=== PATIENT | male | born 1965 | race Hispanic/Latino ===

== ENCOUNTER 2018-03-27 11:43 | Inpatient (IN) | payer OTHER ==
[2018-03-27 12:22] LABS: Mean Corpuscular HGB Conc 36 % (32-34); Mean Corpuscular Hemoglobin 34 pg (28-32); Mean Corpuscular Volume 94 fl (84-94); Platelet Count 221 K/mm3 (140-440); Red Blood Count 5.13 M/mm3 (3.65-5.03); Red Cell Distribution Width 13.4 % (13.2-15.2)
[2018-03-27 12:30] LABS: Bacteria,Urine 4+ /HPF (Negative); Bilirubin,Urine NEG (Negative); Blood,Urine NEG (Negative); Color,Urine Amber (Yellow); Hyaline Casts,Urine 12 /LPF; Mucus,Urine 3+ /HPF; Sperm,Urine 3+ /HPF (NP)
[2018-03-27] MEDS ORDERED: HALDOL IM PRN (12:30)
[2018-03-27 12:31] LABS: Benzodiazepines Screen,Urine PRESUMPTIVE NEGATIVE; Cannabinoid Screen,Urine PRESUMPTIVE NEGATIVE; Cocaine Screen,Urine PRESUMPTIVE NEGATIVE; Methadone Screen,Urine PRESUMPTIVE NEGATIVE; Opiate Screen,Urine PRESUMPTIVE NEGATIVE
[2018-03-27 12:31] LABS: Hematocrit 48.2 % (35.5-45.6); Hemoglobin 17.3 gm/dl (11.8-15.2)
[2018-03-27 12:43] LABS: Calcium 9.5 mg/dL (8.4-10.2)
[2018-03-27] MEDS ORDERED: NACL 0.9% 1000 ML 2,000 ML IV ONE (12:49)
[2018-03-27] MEDS: ATIVAN IM PRN (12:50)
[2018-03-27] MEDS ORDERED: NACL 0.9% 1000 ML 1,000 ML IV ONE (12:50)
--- NOTE | 2018-03-27 12:51 | Emergency Department Report ---
ED General Adult HPI - General Chief complaint: Psych Stated complaint: SKYSO Time Seen by Provider: 03/27/18 12:28 Source: patient, RN notes reviewed, old records reviewed Mode of arrival: Ambulatory Limitations: Other (patient is psychiatrically disorganized and is a poor historian) - History of Present Illness Initial comments: This is a 53-year-old male who is unknown to this provider previously, has a history of psychiatric disease and methamphetamine abuse. He reports that he was recently released from long term on the of this month. He then reports that he was hanging out with friends, and ingested "monkey paw" although he is not sure what it was. He is brought to the hospital today by local police for medical clearance. The patient is a very disorganized historian. He is not homicidal or suicidal, and an indicates no physical pain. History is limited as the patient is a poor historian, actively psychotic and disorganized. No family or friends or [place] enforcement is available for collateral information at this time. -: unknown Radiation: other Quality: other Consistency: other Improves with: other Worsens with: other Associated Symptoms: other - Related Data Home Medications Medication Instructions Recorded Confirmed Last Taken No Known Home Medications [No 03/27/18 03/27/18 Unknown Reported Home Medications] Allergies Allergy/AdvReac Type Severity Reaction Status Date / Time codeine Allergy Unknown Verified 03/27/18 11:57 ED Review of Systems ROS: Stated complaint: SKYSO Other details as noted in HPI Comment: Unobtainable due to pts medical conditions Cardiovascular: denies: chest pain Gastrointestinal: abdominal pain Genitourinary: denies: dysuria Psychiatric: denies: homicidal thoughts, suicidal thoughts ED Past Medical Hx - Past Medical History Hx Psychiatric Treatment: Yes (paranoid schizophrenia) - Surgical History Past Surgical History?: No - Social History Smoking Status: Current Every Day Smoker Substance Use Type: None, Methamphetamines - Medications Home Medications: Home Medications Medication Instructions Recorded Confirmed Last Taken Type No Known Home Medications [No 03/27/18 03/27/18 Unknown History Reported Home Medications] ED Physical Exam - General Limitations: Other (patient appears anxious and is disorganized) General appearance: alert, appears intoxicated, anxious - Head Head exam: Present: atraumatic, normocephalic - Eye Eye exam: Present: normal appearance - ENT ENT exam: Present: mucous membranes dry - Neck Neck exam: Present: normal inspection, full ROM - Respiratory Respiratory exam: Present: normal lung sounds bilaterally. Absent: respiratory distress - Cardiovascular Cardiovascular Exam: Present: normal rhythm, tachycardia, normal heart sounds. Absent: systolic murmur, diastolic murmur, rubs, gallop - GI/Abdominal GI/Abdominal exam: Present: soft, normal bowel sounds. Absent: distended, tenderness, guarding, rebound, rigid, pulsatile mass - Rectal Rectal exam: Present: deferred - Extremities Exam Extremities exam: Present: normal inspection, full ROM, other (2+ pulses noted in the bilateral upper, lower extremities. Compartments soft. No long bony tenderness. The pelvis is stable.). Absent: calf tenderness - Back Exam Back exam: Present: normal inspection. Absent: tenderness, CVA tenderness (R), paraspinal tenderness, vertebral tenderness - Neurological Exam Neurological exam: Present: alert, CN II-XII intact, normal gait, other ( Extraocular movements intact. Tongue midline. No facial droop. Facial sensation intact to light touch in the V1, V2, V3 distribution bilaterally. 5 and 5 strength in 4 extremities.. Sensation is intact to light touch in 4 extremities.) - Psychiatric Psychiatric exam: Present: anxious, manic - Skin Skin exam: Present: warm, dry, intact, normal color. Absent: rash ED Course Vital Signs 03/27/18 11:58 Temperature 98.2 F Pulse Rate 121 H Respiratory 20 Rate Blood Pressure 142/61 O2 Sat by Pulse 96 Oximetry - Reevaluation(s) Reevaluation #1: 03/27/18 13:26 Differential diagnosis, including but not limited to: Rhabdomyolysis, acute renal insufficiency, psychosis, methamphetamine abuse Assessment and plan: 53-year-old male who is very disorganized, appears intoxicated on methamphetamines or sympathomimetic agent, does not appear to have the ability to care for himself, and also does not appear to have the ability to make rational decisions at this time. His laboratory studies show leukocytosis and acute renal insufficiency, and probable rhabdomyolysis. Patient most likely has methamphetamine-induced rhabdomyolysis which has caused renal failure. His leukocytosis is appreciated , he is afebrile but tachycardic, likely a function of dehydration and possible vasomotor nephropathy. Leukocytosis is most likely a stress demargination. However his urinalysis does demonstrate bacteria. He will be treated according to the sepsis pathway, with appropriate IV fluids, blood cultures, lactic acid. He will require admission for his multiple abnormalities. Case is presented to the Hospital physician, Dr. Serrano, who has accepted the patient to the medical service. A 1013 form is filled out by me. ED Medical Decision Making - Lab Data Result diagrams: 03/27/18 12:11 03/27/18 12:11 Critical care attestation.: If time is entered above; I have spent that time in minutes in the direct care of this critically ill patient, excluding procedure time. ED Disposition Clinical Impression: Acute psychosis, Methamphetamine abuse, MARIANA (acute kidney injury) Rhabdomyolysis Qualifiers: Rhabdomyolysis type: non-traumatic Qualified Code(s): M62.82 - Rhabdomyolysis Disposition: DC-09 OP ADMIT IP TO THIS HOSP Is pt being admited?: Yes Condition: Good Referrals: ERIKA TRINIDAD MD [Primary Care Provider] - 3-5 Days
[2018-03-27 12:53] LABS: Amphetamine Screen,Urine PRESUMPTIVE POSITIVE
[2018-03-27] MEDS ORDERED: NACL 0.9% 1000 ML IV ONE (12:56)
--- NOTE | 2018-03-27 13:21 | History and Physical Report ---
History of Present Illness History of present illness: 53 YO Male with Nicotine Dependence, Paranoid Schizophrenia, Methamphetamine Abuse presents to ED for evaluation. Pt is unable to provide history due to disorganized schizophrenia as well as confusion. Pt brought to ED by [facility]. As per patient, he reports that he was hanging out with friends and ingested "monkey paw". No further history available. Pt seen and evaluated in ED and found to have UTI, Sepsis, and Acute Renal Failure. Pt admitted to medical floor , and initiated on sepsis protocol. Past History Past Medical History: other (Schizophrenia) Past Surgical History: No surgical history, Other (reviewed) Social history: single, smoking Family history: no significant family history (reviewed) Medications and Allergies Allergies Allergy/AdvReac Type Severity Reaction Status Date / Time codeine Allergy Unknown Verified 03/27/18 11:57 Home Medications Medication Instructions Recorded Confirmed Last Taken Type No Known Home Medications [No 03/27/18 03/27/18 Unknown History Reported Home Medications] Active Meds: Active Medications Haloperidol Lactate (Haldol) 5 mg IM Q6HR PRN PRN Reason: Agitation Ceftriaxone Sodium (Rocephin/Ns 1 Gm/50 Ml) 1 gm in 50 mls @ 100 mls/hr IV Q24H MICHAEL; Protocol Lorazepam (Ativan) 2 mg IM Q4HR PRN PRN Reason: Agitation Review of Systems ROS unobtainable: due to mental status Exam - Constitutional Vitals: Temp Pulse Resp BP Pulse Ox 98.2 F 121 H 20 142/61 96 03/27/18 11:58 03/27/18 11:58 03/27/18 11:58 03/27/18 11:58 03/27/18 11:58 General appearance: Present: mild distress - EENT Eyes: Present: PERRL ENT: hearing intact, clear oral mucosa - Neck Neck: Present: supple, normal ROM - Respiratory Respiratory effort: normal Respiratory: bilateral: CTA - Cardiovascular Heart Sounds: Present: S1 & S2. Absent: rub, click - Extremities Extremities: pulses symmetrical, No edema Peripheral Pulses: abnormal (capillary refill greater than 3.5 seconds) - Abdominal General gastrointestinal: Present: soft, non-tender, non-distended, normal bowel sounds Male genitourinary: Present: normal - Integumentary Integumentary: Present: clear, dry, clammy, decreased turgor - Musculoskeletal Musculoskeletal: gait normal, strength equal bilaterally - Psychiatric Psychiatric: no appropriate mood/affect, no intact judgment & insight, no memory intact, agitated - Neurologic Neurologic: CNII-XII intact, moves all extremities, no gait normal Results - Labs CBC & Chem 7: 03/27/18 12:11 03/27/18 12:11 Labs: Abnormal lab results 03/27/18 03/27/18 03/27/18 Range/Units 12:11 12:11 12:11 WBC (4.5-11.0) K/mm3 RBC (3.65-5.03) M/mm3 Hgb (11.8-15.2) gm/dl Hct (35.5-45.6) % MCH (28-32) pg MCHC (32-34) % Sodium 135 L (137-145) mmol/L Potassium 3.5 L (3.6-5.0) mmol/L Chloride 91.5 L (98-107) mmol/L BUN 32 H (9-20) mg/dL Creatinine 2.5 H (0.8-1.5) mg/dL Glucose 154 H (75-100) mg/dL Urine WBC (Auto) (0.0-6.0) /HPF Salicylates < 0.3 L (2.8-20.0) mg/dL Acetaminophen < 5.0 L (10.0-30.0) ug/mL 03/27/18 03/27/18 Range/Units 12:11 12:12 WBC 18.2 H (4.5-11.0) K/mm3 RBC 5.13 H (3.65-5.03) M/mm3 Hgb 17.3 H (11.8-15.2) gm/dl Hct 48.2 H (35.5-45.6) % MCH 34 H (28-32) pg MCHC 36 H (32-34) % Sodium (137-145) mmol/L Potassium (3.6-5.0) mmol/L Chloride (98-107) mmol/L BUN (9-20) mg/dL Creatinine (0.8-1.5) mg/dL Glucose (75-100) mg/dL Urine WBC (Auto) 16.0 H (0.0-6.0) /HPF Salicylates (2.8-20.0) mg/dL Acetaminophen (10.0-30.0) ug/mL Assessment and Plan - Patient Problems (1) Sepsis Current Visit: Yes Status: Acute Qualifiers: Sepsis type: sepsis due to unspecified organism Qualified Code(s): A41.9 - Sepsis, unspecified organism Plan to address problem: Iv antibiotic therapy, monitor uop q shift, blood cultures, urinalysis, Chest X ray, serial lactic acid, IVF resuscitation. (2) UTI (urinary tract infection) Current Visit: Yes Status: Acute Qualifiers: Encounter type: initial encounter Plan to address problem: IV antibiotic therapy (3) ARF (acute renal failure) Current Visit: Yes Status: Acute Qualifiers: Acute renal failure type: with acute tubular necrosis Qualified Code(s): N17.0 - Acute kidney failure with tubular necrosis Plan to address problem: IVF resuscitation, monitor uop q shift, urine electrolytes, renal ultrasound, repeat bmp in am. (4) Methamphetamine abuse Current Visit: Yes Status: Acute Plan to address problem: Pt counseled, supportive care (5) Rhabdomyolysis Current Visit: Yes Status: Acute Qualifiers: Rhabdomyolysis type: non-traumatic Qualified Code(s): M62.82 - Rhabdomyolysis Plan to address problem: IVF resuscitation, CK Level, monitor uop q shift, repeat CK in am. (6) Schizophrenia Current Visit: No Status: Chronic Qualifiers: Schizophrenia type: disorganized schizophrenia Qualified Code(s): F20.1 - Disorganized schizophrenia Plan to address problem: Psychiatry consulted, supportive care, neuro checks (7) DVT prophylaxis Current Visit: Yes Status: Acute Plan to address problem: SCD to BLE while in bed.
[2018-03-27] MEDS ORDERED: SODIUM CHLORIDE FLUSH SYRINGE 10 ML IV PRN (13:22)
[2018-03-27] MEDS ORDERED: ZOFRAN IV PRN (13:22)
[2018-03-27] MEDS ORDERED: TYLENOL PO PRN (13:22)
[2018-03-27] MEDS ORDERED: NACL 0.45% 2,000 ML IV SCH (14:00)
[2018-03-27] MEDS ORDERED: ROCEPHIN/NS 1 GM/50 ML 1 GM/50 ML BAG IV SCH (14:00)
[2018-03-27 14:23] LABS: Band Neutrophils # (Manual) 0.7 K/mm3; Basophils % (Manual) 0 % (0.0-1.8); Eosinophils % (Manual) 0 % (0.0-4.3); Total Cells Counted 100
[2018-03-27 14:24] LABS: Large Platelets Few; Platelet Estimate Consistent w Auto; RBC Morphology Normal
--- NOTE | 2018-03-27 16:12 | Ultrasound Report ---
FINAL REPORT EXAM: US RENAL BILAT HISTORY: renal failure TECHNIQUE: Ultrasound examination of the kidneys PRIORS: None. FINDINGS: Visualized right kidney: 11.2 x 4.9 x 5.9 cm. Visualized left kidney: 11.9 x 4.5 x 4.9 cm. Renal cortical thickness is 19 mm on the right and 21 mm on the left. Focal lesion: None visible Calculus: None visible Hydronephrosis: None Perinephric fluid: None Urinary bladder: No evidence of focal abnormality in visible portion. IMPRESSION: No sonographic evidence of renal pathology
[2018-03-27] MEDS: ROCEPHIN/NS 1 GM/50 ML 1 GM/50 ML BAG IV SCH (16:35)
[2018-03-27] MEDS: SODIUM CHLORIDE FLUSH SYRINGE 10 ML IV SCH (22:50)
[2018-03-28] MEDS: ATIVAN IM PRN (05:41)
--- NOTE | 2018-03-28 08:38 | Progress Note ---
Assessment and Plan Assessment and plan: 53 YO Male with Nicotine Dependence, Paranoid Schizophrenia, Methamphetamine Abuse presents to ED for evaluation. Pt is unable to provide history due to disorganized schizophrenia as well as confusion. Pt brought to ED by [facility] for medical clearance. As per patient, he reports that he was hanging out with friends and ingested "monkey paw". No further history available. Pt seen and evaluated in ED and found to have UTI, Sepsis, and Acute Renal Failure. Pt admitted to medical floor, and initiated on sepsis protocol. Sepsis secondary to Acute cystitis Acute cystitis Acute Kidney injury secondary to vasomotor nephropathy Methaampetamin abusea Rhabdomyolysis Schizophrenia Recent Incarceration Plan * Supportive care * Follow cultures * Continue IV fluids * Continue 1013 pending psych eval * Await stat repeat labs today * if renal function improving, patient can be cleared for discharge * Plan discussed with patient in detail * Renal us pending * DVT/GI prophy * Counselling against substance abuse. 15 MINS History Interval history: Patient seen and examined, reports no remorse about attempting to use meth, took the monkey paw due to thought it contained meth. Denies chest pain, shortness of breath, nausea and vomiting. Hospitalist Physical - Constitutional Vitals: Temp Pulse Resp BP Pulse Ox 98.3 F 78 18 95/56 98 03/28/18 05:40 03/28/18 05:59 03/28/18 05:40 03/28/18 05:40 03/28/18 05:59 General appearance: Present: no acute distress, well-nourished - EENT Eyes: Present: PERRL, EOM intact ENT: clear oral mucosa - Neck Neck: Present: supple, normal ROM - Respiratory Respiratory effort: normal Respiratory: bilateral: CTA - Cardiovascular Rhythm: regular Heart Sounds: Present: S1 & S2. Absent: systolic murmur - Extremities Extremities: no ischemia, pulses intact, pulses symmetrical, No edema, normal temperature, normal color, Full ROM Peripheral Pulses: within normal limits - Abdominal General gastrointestinal: soft, non-tender, non-distended, normal bowel sounds - Integumentary Integumentary: Present: clear, warm, dry - Psychiatric Psychiatric: appropriate mood/affect, intact judgment & insight - Neurologic Neurologic: CNII-XII intact, moves all extremities - Allied Health Allied health notes reviewed: nursing Results - Labs CBC & Chem 7: 03/28/18 11:43 03/28/18 11:43 Labs: Laboratory Last Values WBC 18.2 K/mm3 (4.5-11.0) H 03/27/18 12:11 RBC 5.13 M/mm3 (3.65-5.03) H 03/27/18 12:11 Hgb 17.3 gm/dl (11.8-15.2) H 03/27/18 12:11 Hct 48.2 % (35.5-45.6) H 03/27/18 12:11 MCV 94 fl (84-94) 03/27/18 12:11 MCH 34 pg (28-32) H 03/27/18 12:11 MCHC 36 % (32-34) H 03/27/18 12:11 RDW 13.4 % (13.2-15.2) 03/27/18 12:11 Plt Count 221 K/mm3 (140-440) 03/27/18 12:11 Add Manual Diff Complete 03/27/18 12:11 Total Counted 100 03/27/18 12:11 Seg Neuts % (Manual) 70.0 % (40.0-70.0) 03/27/18 12:11 Band Neutrophils % 4.0 % 03/27/18 12:11 Lymphocytes % (Manual) 9.0 % (13.4-35.0) L 03/27/18 12:11 Reactive Lymphs % (Man) 0 % 03/27/18 12:11 Monocytes % (Manual) 17.0 % (0.0-7.3) H 03/27/18 12:11 Eosinophils % (Manual) 0 % (0.0-4.3) 03/27/18 12:11 Basophils % (Manual) 0 % (0.0-1.8) 03/27/18 12:11 Metamyelocytes % 0 % 03/27/18 12:11 Myelocytes % 0 % 03/27/18 12:11 Promyelocytes % 0 % 03/27/18 12:11 Blast Cells % 0 % 03/27/18 12:11 Nucleated RBC % Not Reportable 03/27/18 12:11 Seg Neutrophils # Man 12.7 K/mm3 (1.8-7.7) H 03/27/18 12:11 Band Neutrophils # 0.7 K/mm3 03/27/18 12:11 Lymphocytes # (Manual) 1.6 K/mm3 (1.2-5.4) 03/27/18 12:11 Abs React Lymphs (Man) 0.0 K/mm3 03/27/18 12:11 Monocytes # (Manual) 3.1 K/mm3 (0.0-0.8) H 03/27/18 12:11 Eosinophils # (Manual) 0.0 K/mm3 (0.0-0.4) 03/27/18 12:11 Basophils # (Manual) 0.0 K/mm3 (0.0-0.1) 03/27/18 12:11 Metamyelocytes # 0.0 K/mm3 03/27/18 12:11 Myelocytes # 0.0 K/mm3 03/27/18 12:11 Promyelocytes # 0.0 K/mm3 03/27/18 12:11 Blast Cells # 0.0 K/mm3 03/27/18 12:11 WBC Morphology Not Reportable 03/27/18 12:11 Hypersegmented Neuts Not Reportable 03/27/18 12:11 Hyposegmented Neuts Not Reportable 03/27/18 12:11 Hypogranular Neuts Not Reportable 03/27/18 12:11 Smudge Cells Not Reportable 03/27/18 12:11 Toxic Granulation Not Reportable 03/27/18 12:11 Toxic Vacuolation Not Reportable 03/27/18 12:11 Dohle Bodies Not Reportable 03/27/18 12:11 Pelger-Huet Anomaly Not Reportable 03/27/18 12:11 Rodrick Rods Not Reportable 03/27/18 12:11 Platelet Estimate Consistent w auto 03/27/18 12:11 Clumped Platelets Not Reportable 03/27/18 12:11 Plt Clumps, EDTA Not Reportable 03/27/18 12:11 Large Platelets Few 03/27/18 12:11 Giant Platelets Not Reportable 03/27/18 12:11 Platelet Satelliting Not Reportable 03/27/18 12:11 Plt Morphology Comment Not Reportable 03/27/18 12:11 RBC Morphology Normal 03/27/18 12:11 Dimorphic RBCs Not Reportable 03/27/18 12:11 Polychromasia Not Reportable 03/27/18 12:11 Hypochromasia Not Reportable 03/27/18 12:11 Poikilocytosis Not Reportable 03/27/18 12:11 Anisocytosis Not Reportable 03/27/18 12:11 Microcytosis Not Reportable 03/27/18 12:11 Macrocytosis Not Reportable 03/27/18 12:11 Spherocytes Not Reportable 03/27/18 12:11 Pappenheimer Bodies Not Reportable 03/27/18 12:11 Sickle Cells Not Reportable 03/27/18 12:11 Target Cells Not Reportable 03/27/18 12:11 Tear Drop Cells Not Reportable 03/27/18 12:11 Ovalocytes Not Reportable 03/27/18 12:11 Helmet Cells Not Reportable 03/27/18 12:11 Quintana-Numa Bodies Not Reportable 03/27/18 12:11 [place] Rings Not Reportable 03/27/18 12:11 Emigdio Cells Not Reportable 03/27/18 12:11 Bite Cells Not Reportable 03/27/18 12:11 Crenated Cell Not Reportable 03/27/18 12:11 Elliptocytes Not Reportable 03/27/18 12:11 Acanthocytes (Spur) Not Reportable 03/27/18 12:11 Rouleaux Not Reportable 03/27/18 12:11 Hemoglobin C Crystals Not Reportable 03/27/18 12:11 Schistocytes Not Reportable 03/27/18 12:11 Malaria parasites Not Reportable 03/27/18 12:11 Nico Bodies Not Reportable 03/27/18 12:11 Hem Pathologist Commnt No 03/27/18 12:11 Sodium 135 mmol/L (137-145) L 03/27/18 12:11 Potassium 3.5 mmol/L (3.6-5.0) L 03/27/18 12:11 Chloride 91.5 mmol/L (98-107) L 03/27/18 12:11 Carbon Dioxide 25 mmol/L (22-30) 03/27/18 12:11 Anion Gap 22 mmol/L 03/27/18 12:11 BUN 32 mg/dL (9-20) H 03/27/18 12:11 Creatinine 2.5 mg/dL (0.8-1.5) H 03/27/18 12:11 Estimated GFR 27 ml/min 03/27/18 12:11 BUN/Creatinine Ratio 13 % 03/27/18 12:11 Glucose 154 mg/dL (75-100) H 03/27/18 12:11 Lactic Acid 0.90 mmol/L (0.7-2.0) 03/27/18 19:55 Calcium 9.5 mg/dL (8.4-10.2) 03/27/18 12:11 Total Creatine Kinase 5401 units/L (55-170) H 03/27/18 12:11 Urine Color [place] (Yellow) 03/27/18 12:12 Urine Turbidity Slightly-cloudy (Clear) 03/27/18 12:12 Urine pH 5.0 (5.0-7.0) 03/27/18 12:12 Ur Specific [place] 1.027 (1.003-1.030) 03/27/18 12:12 Urine Protein 100 mg/dl mg/dL (Negative) 03/27/18 12:12 Urine Glucose (UA) Neg mg/dL (Negative) 03/27/18 12:12 Urine Ketones Tr mg/dL (Negative) 03/27/18 12:12 Urine Blood Neg (Negative) 03/27/18 12:12 Urine Nitrite Neg (Negative) 03/27/18 12:12 Urine Bilirubin Neg (Negative) 03/27/18 12:12 Urine Urobilinogen 4.0 mg/dL (<2.0) 03/27/18 12:12 Ur Leukocyte Esterase Neg (Negative) 03/27/18 12:12 Urine WBC (Auto) 16.0 /HPF (0.0-6.0) H 03/27/18 12:12 Urine RBC (Auto) 25.0 /HPF (0.0-6.0) 03/27/18 12:12 U Epithel Cells (Auto) 1.0 /HPF (0-13.0) 03/27/18 12:12 Urine Bacteria (Auto) 4+ /HPF (Negative) 03/27/18 12:12 Hyaline Casts 12 /LPF 03/27/18 12:12 Urine Mucus 3+ /HPF 03/27/18 12:12 Urine Yeast (Budding) 1+ /HPF 03/27/18 12:12 Urine Sperm 3+ /HPF (LADLE REPAIRER) 03/27/18 12:12 Salicylates < 0.3 mg/dL (2.8-20.0) L 03/27/18 12:11 Urine Opiates Screen Presumptive negative 03/27/18 12:12 Urine Methadone Screen Presumptive negative 03/27/18 12:12 Acetaminophen < 5.0 ug/mL (10.0-30.0) L 03/27/18 12:11 Ur Barbiturates Screen Presumptive negative 03/27/18 12:12 Ur Phencyclidine Scrn Presumptive negative 03/27/18 12:12 Ur Amphetamines Screen Presumptive positive 03/27/18 12:12 U Benzodiazepines Scrn Presumptive negative 03/27/18 12:12 Urine Cocaine Screen Presumptive negative 03/27/18 12:12 U Marijuana (THC) Screen Presumptive negative 03/27/18 12:12 Drugs of Abuse Note Disclamer 03/27/18 12:12 Plasma/Serum Alcohol < 0.01 % (0-0.07) 03/27/18 12:11
[2018-03-28] MEDS: HEPARIN SUB-Q SCH ×2 (10:30→22:00)
[2018-03-28] MEDS: SODIUM CHLORIDE FLUSH SYRINGE 10 ML IV SCH (10:33)
[2018-03-28 12:26] LABS: Basophils % (Auto) 0.2 % (0.0-1.8); Eosinophils # (Auto) 0.1 K/mm3 (0.0-0.4); Eosinophils % (Auto) 1.3 % (0.0-4.3); Hematocrit 42.3 % (35.5-45.6); Hemoglobin 14.7 gm/dl (11.8-15.2); Lymphocytes # (Auto) 2.1 K/mm3 (1.2-5.4); Lymphocytes % (Auto) 27.5 % (13.4-35.0); Mean Corpuscular HGB Conc 35 % (32-34); Mean Corpuscular Hemoglobin 33 pg (28-32); Mean Corpuscular Volume 96 fl (84-94); Monocytes % (Auto) 13.3 % (0.0-7.3); Platelet Count 163 K/mm3 (140-440); Red Blood Count 4.41 M/mm3 (3.65-5.03); Red Cell Distribution Width 13.8 % (13.2-15.2)
[2018-03-28 12:42] LABS: BUN/Creatinine Ratio 25; Blood Urea Nitrogen 20 mg/dL (9-20); Calcium 8.6 mg/dL (8.4-10.2); Hemolysis Index 8
[2018-03-28] MEDS: ROCEPHIN/NS 1 GM/50 ML 1 GM/50 ML BAG IV SCH (19:03)
[2018-03-28] MEDS: NACL 0.45% 1000 ML 1,000 ML IV SCH (19:21)
[2018-03-29] MEDS: SODIUM CHLORIDE FLUSH SYRINGE 10 ML IV SCH ×3 (00:44→22:10)
[2018-03-29] MEDS: NACL 0.45% 1000 ML 1,000 ML IV SCH (05:28)
[2018-03-29 05:42] LABS: Hematocrit 41.4 % (35.5-45.6); Hemoglobin 14.2 gm/dl (11.8-15.2); Mean Corpuscular HGB Conc 34 % (32-34); Mean Corpuscular Hemoglobin 33 pg (28-32); Mean Corpuscular Volume 96 fl (84-94); Platelet Count 153 K/mm3 (140-440); Red Blood Count 4.32 M/mm3 (3.65-5.03); Red Cell Distribution Width 13.6 % (13.2-15.2)
[2018-03-29 06:22] LABS: BUN/Creatinine Ratio 30; Blood Urea Nitrogen 15 mg/dL (9-20); Calcium 8.3 mg/dL (8.4-10.2); Hemolysis Index 10
[2018-03-29] MEDS: HEPARIN SUB-Q SCH ×2 (11:14→22:12)
--- NOTE | 2018-03-29 12:27 | Discharge Summary ---
Providers - Providers Date of Admission: 03/27/18 13:22 Attending physician: AYDEN PEREZ MD 03/27/18 12:30 Consult to Mental Health [CONS] Urgent Reason For Exam: psych Place consult to:: candles pourer rn transition Notified:: awaiting call back 03/27/18 13:28 Consult to Physician [CONS] Routine Comment: Consulting Provider: CHERELLE ROCK Physician Instructions: Reason For Exam: psychosis Primary care physician: ERIKA TRINIDAD Hospitalization Reason for admission: sepsis, psychosis Condition: Good Hospital course: 53 YO Male with Nicotine Dependence, Paranoid Schizophrenia, Methamphetamine Abuse presents to ED for evaluation. Pt is unable to provide history due to disorganized schizophrenia as well as confusion. Pt brought to ED by [facility] for medical clearance. As per patient, he reports that he was hanging out with friends and ingested "monkey paw". No further history available. Pt seen and evaluated in ED and found to have UTI, Sepsis, and Acute Renal Failure. Pt admitted to medical floor, and initiated on sepsis protocol. Patient was treated with antibiotics, was also seen by psychiatry and started on INVEGA which he was supposed to be on outpatient and also vistaril, subsquently the 1013 was rescineded and resources provided to the patient including counselling. Sepsis secondary to Acute cystitis Acute cystitis Acute Kidney injury secondary to vasomotor nephropathy Methamphetamine abusea Rhabdomyolysis Schizophrenia Recent Incarceration Unspecified Psychosis. Substance Use DO (amphetamines). Acute Psychosis Disposition: DC-01 TO HOME OR SELFCARE Time spent for discharge: 35 mins Core Measure Documentation - Palliative Care Palliative Care/ Comfort Measures: Not Applicable - Core Measures Any of the following diagnoses?: none - VTE Discharge Requirements Deep Vein Thrombosis/Pulmonary Embolism Present on Admission: No Exam - Physical Exam Narrative exam: VITAL SIGNS: Reviewed. GENERAL: The patient appeared well nourished and normally developed. Vital signs as documented. HEAD: No signs of head trauma. EYES: Pupils are equal. Extraocular motions intact. EARS: Hearing grossly intact. MOUTH: Oropharynx is normal. NECK: No adenopathy, no JVD. CHEST: Chest with clear breath sounds bilaterally. No wheezes, rales, or rhonchi. CARDIAC: Regular rate and rhythm. S1 and S2, without murmurs, gallops, or rubs. VASCULAR: No Edema. Peripheral pulses normal and equal in all extremities. ABDOMEN: Soft, without detectable tenderness. No sign of distention. No rebound or guarding, and no masses palpated. Bowel Sounds normal. MUSCULOSKELETAL: Good range of motion of all major joints. Extremities without clubbing, cyanosis or edema. NEUROLOGIC EXAM: Alert and oriented x 3. No focal sensory or strength deficits. Speech normal. Follows commands. PSYCHIATRIC: Mood normal.disorganized thought process SKIN: No rash or lesions. - Constitutional Vitals: Temp Pulse Resp BP Pulse Ox 97.9 F 77 20 106/68 97 03/29/18 05:31 03/29/18 07:22 03/29/18 07:22 03/29/18 07:22 03/29/18 07:22 Plan Activity: advance as tolerated, fall precautions Diet: regular Special Instructions: record daily BP diary, smoking cessation Additional Instructions: must enroll in detox program Follow up with: ERIKA TRINIDAD MD [Primary Care Provider] - 3-5 Days CHERELLE ROCK MD [Staff Physician] - 7 Days
--- NOTE | 2018-03-29 17:23 | Progress Note ---
Assessment and Plan Assessment and plan: 53 YO Male with Nicotine Dependence, Paranoid Schizophrenia, Methamphetamine Abuse presents to ED for evaluation. Pt is unable to provide history due to disorganized schizophrenia as well as confusion. Pt brought to ED by [facility] for medical clearance. As per patient, he reports that he was hanging out with friends and ingested "monkey paw". No further history available. Pt seen and evaluated in ED and found to have UTI, Sepsis, and Acute Renal Failure. Pt admitted to medical floor, and initiated on sepsis protocol. Sepsis secondary to Acute cystitis Acute cystitis Acute Kidney injury secondary to vasomotor nephropathy-rESOLVED Methampetamin abused Rhabdomyolysis Schizophrenia Recent Incarceration Plan * Supportive care * Follow cultures-NEGATIVE * Discontinue IV fluids * Continue 1013 pending psych eval * Patient clinically cleared for discharge.oNCE PSYCH EVAL COMPLETED * Plan discussed with patient in detail * DVT/GI prophy * Counselling against substance abuse. 15 MINS History Interval history: Patient seen and examined, reports no remorse about attempting to use meth, took the monkey paw due to thought it contained meth. Denies chest pain, shortness of breath, nausea and vomiting. Hospitalist Physical - Physical exam Narrative exam: VITAL SIGNS: Reviewed. GENERAL: The patient appeared well nourished and normally developed. Vital signs as documented. HEAD: No signs of head trauma. EYES: Pupils are equal. Extraocular motions intact. EARS: Hearing grossly intact. MOUTH: Oropharynx is normal. NECK: No adenopathy, no JVD. CHEST: Chest with clear breath sounds bilaterally. No wheezes, rales, or rhonchi. CARDIAC: Regular rate and rhythm. S1 and S2, without murmurs, gallops, or rubs. VASCULAR: No Edema. Peripheral pulses normal and equal in all extremities. ABDOMEN: Soft, without detectable tenderness. No sign of distention. No rebound or guarding, and no masses palpated. Bowel Sounds normal. MUSCULOSKELETAL: Good range of motion of all major joints. Extremities without clubbing, cyanosis or edema. NEUROLOGIC EXAM: Alert and oriented x 3. No focal sensory or strength deficits. Speech normal. Follows commands. PSYCHIATRIC: Mood normal. SKIN: No rash or lesions. - Constitutional Vitals: Temp Pulse Resp BP Pulse Ox 98.0 F 60 20 118/79 97 03/29/18 16:56 03/29/18 16:56 03/29/18 16:56 03/29/18 16:56 03/29/18 16:56 General appearance: Present: no acute distress, well-nourished Results - Labs CBC & Chem 7: 03/29/18 04:59 03/29/18 04:59 Labs: Laboratory Last Values WBC 6.7 K/mm3 (4.5-11.0) 03/29/18 04:59 RBC 4.32 M/mm3 (3.65-5.03) 03/29/18 04:59 Hgb 14.2 gm/dl (11.8-15.2) 03/29/18 04:59 Hct 41.4 % (35.5-45.6) 03/29/18 04:59 MCV 96 fl (84-94) H 03/29/18 04:59 MCH 33 pg (28-32) H 03/29/18 04:59 MCHC 34 % (32-34) 03/29/18 04:59 RDW 13.6 % (13.2-15.2) 03/29/18 04:59 Plt Count 153 K/mm3 (140-440) 03/29/18 04:59 Lymph % (Auto) 27.5 % (13.4-35.0) 03/28/18 11:43 [place] % (Auto) 13.3 % (0.0-7.3) H 03/28/18 11:43 Eos % (Auto) 1.3 % (0.0-4.3) 03/28/18 11:43 Baso % (Auto) 0.2 % (0.0-1.8) 03/28/18 11:43 Lymph # 2.1 K/mm3 (1.2-5.4) 03/28/18 11:43 [place] # 1.0 K/mm3 (0.0-0.8) H 03/28/18 11:43 Eos # 0.1 K/mm3 (0.0-0.4) 03/28/18 11:43 Baso # 0.0 K/mm3 (0.0-0.1) 03/28/18 11:43 Add Manual Diff Complete 03/27/18 12:11 Total Counted 100 03/27/18 12:11 Seg Neutrophils % 57.7 % (40.0-70.0) 03/28/18 11:43 Seg Neuts % (Manual) 70.0 % (40.0-70.0) 03/27/18 12:11 Band Neutrophils % 4.0 % 03/27/18 12:11 Lymphocytes % (Manual) 9.0 % (13.4-35.0) L 03/27/18 12:11 Reactive Lymphs % (Man) 0 % 03/27/18 12:11 Monocytes % (Manual) 17.0 % (0.0-7.3) H 03/27/18 12:11 Eosinophils % (Manual) 0 % (0.0-4.3) 03/27/18 12:11 Basophils % (Manual) 0 % (0.0-1.8) 03/27/18 12:11 Metamyelocytes % 0 % 03/27/18 12:11 Myelocytes % 0 % 03/27/18 12:11 Promyelocytes % 0 % 03/27/18 12:11 Blast Cells % 0 % 03/27/18 12:11 Nucleated RBC % Not Reportable 03/27/18 12:11 Seg Neutrophils # 4.5 K/mm3 (1.8-7.7) 03/28/18 11:43 Seg Neutrophils # Man 12.7 K/mm3 (1.8-7.7) H 03/27/18 12:11 Band Neutrophils # 0.7 K/mm3 03/27/18 12:11 Lymphocytes # (Manual) 1.6 K/mm3 (1.2-5.4) 03/27/18 12:11 Abs React Lymphs (Man) 0.0 K/mm3 03/27/18 12:11 Monocytes # (Manual) 3.1 K/mm3 (0.0-0.8) H 03/27/18 12:11 Eosinophils # (Manual) 0.0 K/mm3 (0.0-0.4) 03/27/18 12:11 Basophils # (Manual) 0.0 K/mm3 (0.0-0.1) 03/27/18 12:11 Metamyelocytes # 0.0 K/mm3 03/27/18 12:11 Myelocytes # 0.0 K/mm3 03/27/18 12:11 Promyelocytes # 0.0 K/mm3 03/27/18 12:11 Blast Cells # 0.0 K/mm3 03/27/18 12:11 WBC Morphology Not Reportable 03/27/18 12:11 Hypersegmented Neuts Not Reportable 03/27/18 12:11 Hyposegmented Neuts Not Reportable 03/27/18 12:11 Hypogranular Neuts Not Reportable 03/27/18 12:11 Smudge Cells Not Reportable 03/27/18 12:11 Toxic Granulation Not Reportable 03/27/18 12:11 Toxic Vacuolation Not Reportable 03/27/18 12:11 Dohle Bodies Not Reportable 03/27/18 12:11 Pelger-Huet Anomaly Not Reportable 03/27/18 12:11 Rodrick Rods Not Reportable 03/27/18 12:11 Platelet Estimate Consistent w auto 03/27/18 12:11 Clumped Platelets Not Reportable 03/27/18 12:11 Plt Clumps, EDTA Not Reportable 03/27/18 12:11 Large Platelets Few 03/27/18 12:11 Giant Platelets Not Reportable 03/27/18 12:11 Platelet Satelliting Not Reportable 03/27/18 12:11 Plt Morphology Comment Not Reportable 03/27/18 12:11 RBC Morphology Normal 03/27/18 12:11 Dimorphic RBCs Not Reportable 03/27/18 12:11 Polychromasia Not Reportable 03/27/18 12:11 Hypochromasia Not Reportable 03/27/18 12:11 Poikilocytosis Not Reportable 03/27/18 12:11 Anisocytosis Not Reportable 03/27/18 12:11 Microcytosis Not Reportable 03/27/18 12:11 Macrocytosis Not Reportable 03/27/18 12:11 Spherocytes Not Reportable 03/27/18 12:11 Pappenheimer Bodies Not Reportable 03/27/18 12:11 Sickle Cells Not Reportable 03/27/18 12:11 Target Cells Not Reportable 03/27/18 12:11 Tear Drop Cells Not Reportable 03/27/18 12:11 Ovalocytes Not Reportable 03/27/18 12:11 Helmet Cells Not Reportable 03/27/18 12:11 [place] Bodies Not Reportable 03/27/18 12:11 [place] Rings Not Reportable 03/27/18 12:11 Emigdio Cells Not Reportable 03/27/18 12:11 Bite Cells Not Reportable 03/27/18 12:11 Crenated Cell Not Reportable 03/27/18 12:11 Elliptocytes Not Reportable 03/27/18 12:11 Acanthocytes (Spur) Not Reportable 03/27/18 12:11 Rouleaux Not Reportable 03/27/18 12:11 Hemoglobin C Crystals Not Reportable 03/27/18 12:11 Schistocytes Not Reportable 03/27/18 12:11 Malaria parasites Not Reportable 03/27/18 12:11 Nico Bodies Not Reportable 03/27/18 12:11 Hem Pathologist Commnt No 03/27/18 12:11 Sodium 141 mmol/L (137-145) 03/29/18 04:59 Potassium 3.8 mmol/L (3.6-5.0) 03/29/18 04:59 Chloride 104.4 mmol/L (98-107) 03/29/18 04:59 Carbon Dioxide 25 mmol/L (22-30) 03/29/18 04:59 Anion Gap 15 mmol/L 03/29/18 04:59 BUN 15 mg/dL (9-20) 03/29/18 04:59 Creatinine 0.5 mg/dL (0.8-1.5) L 03/29/18 04:59 Estimated GFR > 60 ml/min 03/29/18 04:59 BUN/Creatinine Ratio 30 % 03/29/18 04:59 Glucose 93 mg/dL (75-100) 03/29/18 04:59 Lactic Acid 0.90 mmol/L (0.7-2.0) 03/27/18 19:55 Calcium 8.3 mg/dL (8.4-10.2) L 03/29/18 04:59 Total Creatine Kinase 2274 units/L (55-170) H 03/28/18 11:43 Urine Color [place] (Yellow) 03/27/18 12:12 Urine Turbidity Slightly-cloudy (Clear) 03/27/18 12:12 Urine pH 5.0 (5.0-7.0) 03/27/18 12:12 Ur Specific [place] 1.027 (1.003-1.030) 03/27/18 12:12 Urine Protein 100 mg/dl mg/dL (Negative) 03/27/18 12:12 Urine Glucose (UA) Neg mg/dL (Negative) 03/27/18 12:12 Urine Ketones Tr mg/dL (Negative) 03/27/18 12:12 Urine Blood Neg (Negative) 03/27/18 12:12 Urine Nitrite Neg (Negative) 03/27/18 12:12 Urine Bilirubin Neg (Negative) 03/27/18 12:12 Urine Urobilinogen 4.0 mg/dL (<2.0) 03/27/18 12:12 Ur Leukocyte Esterase Neg (Negative) 03/27/18 12:12 Urine WBC (Auto) 16.0 /HPF (0.0-6.0) H 03/27/18 12:12 Urine RBC (Auto) 25.0 /HPF (0.0-6.0) 03/27/18 12:12 U Epithel Cells (Auto) 1.0 /HPF (0-13.0) 03/27/18 12:12 Urine Bacteria (Auto) 4+ /HPF (Negative) 03/27/18 12:12 Hyaline Casts 12 /LPF 03/27/18 12:12 Urine Mucus 3+ /HPF 03/27/18 12:12 Urine Yeast (Budding) 1+ /HPF 03/27/18 12:12 Urine Sperm 3+ /HPF (AIRCRAFT REFUELER) 03/27/18 12:12 Salicylates < 0.3 mg/dL (2.8-20.0) L 03/27/18 12:11 Urine Opiates Screen Presumptive negative 03/27/18 12:12 Urine Methadone Screen Presumptive negative 03/27/18 12:12 Acetaminophen < 5.0 ug/mL (10.0-30.0) L 03/27/18 12:11 Ur Barbiturates Screen Presumptive negative 03/27/18 12:12 Ur Phencyclidine Scrn Presumptive negative 03/27/18 12:12 Ur Amphetamines Screen Presumptive positive 03/27/18 12:12 U Benzodiazepines Scrn Presumptive negative 03/27/18 12:12 Urine Cocaine Screen Presumptive negative 03/27/18 12:12 U Marijuana (THC) Screen Presumptive negative 03/27/18 12:12 Drugs of Abuse Note Disclamer 03/27/18 12:12 Plasma/Serum Alcohol < 0.01 % (0-0.07) 03/27/18 12:11
[2018-03-29] MEDS: ROCEPHIN/NS 1 GM/50 ML 1 GM/50 ML BAG IV SCH (18:09)
[2018-03-30] MEDS: HEPARIN SUB-Q SCH ×2 (10:07→23:01)
[2018-03-30] MEDS: SODIUM CHLORIDE FLUSH SYRINGE 10 ML IV SCH ×2 (10:08→23:02)
--- NOTE | 2018-03-30 13:18 | Consultation ---
History of Present Illness - Reason for Consult Consult date: 03/30/18 Reason for consult: Mental Health Evaluation Requesting physician: AYDEN PEREZ - Chief Complaint Chief complaint: "I want to get high" - History of Present Psychiatric Illness 53-year-old white male presenting to the ER for medical clearance. The patient has a history of methamphetamine abuse. Today the patient is cooperative, but disorganized and anxious during the assessment. He stated that he came to the hospital for dehydration and feeling weak. He was asked about the "Monkey Paw" he stated that he took prior to his hospitalization. He stated he was given this substance by a "friend" not knowing what it is, but still decided to eat it. He stated that he became "high" from eating the substance. He stated a hx of schizophrenia and received the monthly Invega injection. He stated that he have not had the Invega injection in months. He denies SI/HI's and VH's. He could not confirm of deny AH's when asked. He stated that he want to be discharged so he can go get "high." After making that statement, he stated, "I actually need help." He denies a poor appetite, but admitted to erratic sleep. He denies excessive alcohol consumption (etoh). Medications and Allergies Allergies Allergy/AdvReac Type Severity Reaction Status Date / Time codeine Allergy Unknown Verified 03/27/18 11:57 Home Medications Medication Instructions Recorded Confirmed Last Taken Type No Known Home Medications [No 03/27/18 03/27/18 Unknown History Reported Home Medications] Active Meds: Active Medications Acetaminophen (Tylenol) 650 mg PO Q4H PRN PRN Reason: Pain MILD(1-3)/Fever >100.5/DAILEY Haloperidol Lactate (Haldol) 5 mg IM Q6HR PRN PRN Reason: Agitation Last Admin: 03/27/18 12:50 Dose: 5 mg Heparin Sodium (Porcine) (Heparin) 5,000 unit SUB-Q Q12HR MICHAEL Last Admin: 03/30/18 10:07 Dose: 5,000 unit Ceftriaxone Sodium (Rocephin/Ns 1 Gm/50 Ml) 1 gm in 50 mls @ 100 mls/hr IV Q24H MICHAEL Last Admin: 03/29/18 18:09 Dose: 100 mls/hr Lorazepam (Ativan) 2 mg IM Q4HR PRN PRN Reason: Agitation Last Admin: 03/28/18 05:41 Dose: 2 mg Ondansetron HCl (Zofran) 4 mg IV Q8H PRN PRN Reason: Nausea And Vomiting Sodium Chloride (Sodium Chloride Flush Syringe 10 Ml) 10 ml IV BID MICHAEL Last Admin: 03/30/18 10:08 Dose: 10 ml Sodium Chloride (Sodium Chloride Flush Syringe 10 Ml) 10 ml IV PRN PRN PRN Reason: LINE FLUSH Past psychiatric history - Past Medical History Past Medical History: No medical history Past Surgical History: No surgical history - past Psychiatric treatment and history psychiatric treatment history: Several inpatient psy settings. He denies a fam psy hx. - Social History Social history: lives with family Mental Status Exam - Vital signs Last Vital Signs Temp 97.3 F L 03/30/18 12:22 Pulse 82 03/30/18 12:22 Resp 18 03/30/18 12:22 BP 108/77 03/30/18 12:22 Pulse Ox 97 03/30/18 12:22 - Exam Narrative exam: MSE: Appearance: cooperative Behavior: regular eye contact Speech: regular rate and tone Mood: "okay" anxious Affect: congruent to mood Thought Process: tangential Thought Content: denies SI/HI's and VH's, intermittent AH's Motor Activity: ambulatory, fidgety Cognition: A/O x 3 Insight: poor Judgment: poor Results Result Diagrams: 03/29/18 04:59 03/29/18 04:59 All other labs normal. Assessment and Plan Assessment and plan: Impression: Unspecified Psychosis. Substance Use DO (amphetamines). Today the patient is cooperative, but disorganized and anxious during the assessment. At this time, the patient cannot make rationale decision. CK 471. DDx: Schizophrenia, R/O Bipolar DO with psychosis Recommendation/Plan: The patient's 1013 was transferred to a 2013. Inpatient psy /rehab services is ongoing for this patient. Start Invega 3 mg PO daily for psychosis and Vistaril 25 mg PO BID for anxiety. Discussed possible metabolic side effects of Invega with patient.
[2018-03-30] MEDS ORDERED: INVEGA 3 MG PO SCH ×2 (13:45→17:30)
[2018-03-30] MEDS: VISTARIL PO SCH ×2 (18:02→23:02)
[2018-03-30] MEDS: ROCEPHIN/NS 1 GM/50 ML 1 GM/50 ML BAG IV SCH (18:03)
--- NOTE | 2018-03-30 22:57 | Progress Note ---
Assessment and Plan Assessment and plan: 53 YO Male with Nicotine Dependence, Paranoid Schizophrenia, Methamphetamine Abuse presents to ED for evaluation. Pt is unable to provide history due to disorganized schizophrenia as well as confusion. Pt brought to ED by [facility] for medical clearance. As per patient, he reports that he was hanging out with friends and ingested "monkey paw". No further history available. Pt seen and evaluated in ED and found to have UTI, Sepsis, and Acute Renal Failure. Pt admitted to medical floor, and initiated on sepsis protocol. Sepsis secondary to Acute cystitis Acute cystitis Acute Kidney injury secondary to vasomotor nephropathy-rESOLVED Methampetamin abused Acute Psychosis Rhabdomyolysis Schizophrenia Recent Incarceration Plan * Supportive care * Follow cultures-NEGATIVE * Discontinue IV fluids * discussed with cardiology. No evidence of earlier application date * Continue 1013 pending psych eval * Patient clinically cleared for discharge.oNCE PSYCH EVAL COMPLETED * Plan discussed with patient in detail * DVT/GI prophy * Counselling against substance abuse. 15 MINS History Interval history: Patient seen and examined, no acute clinical syndrome no chest pain, nausea, vomiting or diarrhea. Hospitalist Physical - Physical exam Narrative exam: VITAL SIGNS: Reviewed. GENERAL: The patient appeared well nourished and normally developed. Vital signs as documented. HEAD: No signs of head trauma. EYES: Pupils are equal. Extraocular motions intact. EARS: Hearing grossly intact. MOUTH: Oropharynx is normal. NECK: No adenopathy, no JVD. CHEST: Chest with clear breath sounds bilaterally. No wheezes, rales, or rhonchi. CARDIAC: Regular rate and rhythm. S1 and S2, without murmurs, gallops, or rubs. VASCULAR: No Edema. Peripheral pulses normal and equal in all extremities. ABDOMEN: Soft, without detectable tenderness. No sign of distention. No rebound or guarding, and no masses palpated. Bowel Sounds normal. MUSCULOSKELETAL: Good range of motion of all major joints. Extremities without clubbing, cyanosis or edema. NEUROLOGIC EXAM: Alert and oriented x 3. No focal sensory or strength deficits. Speech normal. Follows commands. PSYCHIATRIC: Mood normal.disorganized thought process SKIN: No rash or lesions. - Constitutional Vitals: Temp Pulse Resp BP Pulse Ox 98.1 F 60 16 117/66 96 03/30/18 22:13 03/30/18 22:13 03/30/18 22:13 03/30/18 22:13 03/30/18 22:13 General appearance: Present: no acute distress, well-nourished Results - Labs CBC & Chem 7: 03/29/18 04:59 03/29/18 04:59 Labs: Laboratory Last Values WBC 6.7 K/mm3 (4.5-11.0) 03/29/18 04:59 RBC 4.32 M/mm3 (3.65-5.03) 03/29/18 04:59 Hgb 14.2 gm/dl (11.8-15.2) 03/29/18 04:59 Hct 41.4 % (35.5-45.6) 03/29/18 04:59 MCV 96 fl (84-94) H 03/29/18 04:59 MCH 33 pg (28-32) H 03/29/18 04:59 MCHC 34 % (32-34) 03/29/18 04:59 RDW 13.6 % (13.2-15.2) 03/29/18 04:59 Plt Count 153 K/mm3 (140-440) 03/29/18 04:59 Lymph % (Auto) 27.5 % (13.4-35.0) 03/28/18 11:43 [place] % (Auto) 13.3 % (0.0-7.3) H 03/28/18 11:43 Eos % (Auto) 1.3 % (0.0-4.3) 03/28/18 11:43 Baso % (Auto) 0.2 % (0.0-1.8) 03/28/18 11:43 Lymph # 2.1 K/mm3 (1.2-5.4) 03/28/18 11:43 [place] # 1.0 K/mm3 (0.0-0.8) H 03/28/18 11:43 Eos # 0.1 K/mm3 (0.0-0.4) 03/28/18 11:43 Baso # 0.0 K/mm3 (0.0-0.1) 03/28/18 11:43 Add Manual Diff Complete 03/27/18 12:11 Total Counted 100 03/27/18 12:11 Seg Neutrophils % 57.7 % (40.0-70.0) 03/28/18 11:43 Seg Neuts % (Manual) 70.0 % (40.0-70.0) 03/27/18 12:11 Band Neutrophils % 4.0 % 03/27/18 12:11 Lymphocytes % (Manual) 9.0 % (13.4-35.0) L 03/27/18 12:11 Reactive Lymphs % (Man) 0 % 03/27/18 12:11 Monocytes % (Manual) 17.0 % (0.0-7.3) H 03/27/18 12:11 Eosinophils % (Manual) 0 % (0.0-4.3) 03/27/18 12:11 Basophils % (Manual) 0 % (0.0-1.8) 03/27/18 12:11 Metamyelocytes % 0 % 03/27/18 12:11 Myelocytes % 0 % 03/27/18 12:11 Promyelocytes % 0 % 03/27/18 12:11 Blast Cells % 0 % 03/27/18 12:11 Nucleated RBC % Not Reportable 03/27/18 12:11 Seg Neutrophils # 4.5 K/mm3 (1.8-7.7) 03/28/18 11:43 Seg Neutrophils # Man 12.7 K/mm3 (1.8-7.7) H 03/27/18 12:11 Band Neutrophils # 0.7 K/mm3 03/27/18 12:11 Lymphocytes # (Manual) 1.6 K/mm3 (1.2-5.4) 03/27/18 12:11 Abs React Lymphs (Man) 0.0 K/mm3 03/27/18 12:11 Monocytes # (Manual) 3.1 K/mm3 (0.0-0.8) H 03/27/18 12:11 Eosinophils # (Manual) 0.0 K/mm3 (0.0-0.4) 03/27/18 12:11 Basophils # (Manual) 0.0 K/mm3 (0.0-0.1) 03/27/18 12:11 Metamyelocytes # 0.0 K/mm3 03/27/18 12:11 Myelocytes # 0.0 K/mm3 03/27/18 12:11 Promyelocytes # 0.0 K/mm3 03/27/18 12:11 Blast Cells # 0.0 K/mm3 03/27/18 12:11 WBC Morphology Not Reportable 03/27/18 12:11 Hypersegmented Neuts Not Reportable 03/27/18 12:11 Hyposegmented Neuts Not Reportable 03/27/18 12:11 Hypogranular Neuts Not Reportable 03/27/18 12:11 Smudge Cells Not Reportable 03/27/18 12:11 Toxic Granulation Not Reportable 03/27/18 12:11 Toxic Vacuolation Not Reportable 03/27/18 12:11 Dohle Bodies Not Reportable 03/27/18 12:11 Pelger-Huet Anomaly Not Reportable 03/27/18 12:11 Rodrick Rods Not Reportable 03/27/18 12:11 Platelet Estimate Consistent w auto 03/27/18 12:11 Clumped Platelets Not Reportable 03/27/18 12:11 Plt Clumps, EDTA Not Reportable 03/27/18 12:11 Large Platelets Few 03/27/18 12:11 Giant Platelets Not Reportable 03/27/18 12:11 Platelet Satelliting Not Reportable 03/27/18 12:11 Plt Morphology Comment Not Reportable 03/27/18 12:11 RBC Morphology Normal 03/27/18 12:11 Dimorphic RBCs Not Reportable 03/27/18 12:11 Polychromasia Not Reportable 03/27/18 12:11 Hypochromasia Not Reportable 03/27/18 12:11 Poikilocytosis Not Reportable 03/27/18 12:11 Anisocytosis Not Reportable 03/27/18 12:11 Microcytosis Not Reportable 03/27/18 12:11 Macrocytosis Not Reportable 03/27/18 12:11 Spherocytes Not Reportable 03/27/18 12:11 Pappenheimer Bodies Not Reportable 03/27/18 12:11 Sickle Cells Not Reportable 03/27/18 12:11 Target Cells Not Reportable 03/27/18 12:11 Tear Drop Cells Not Reportable 03/27/18 12:11 Ovalocytes Not Reportable 03/27/18 12:11 Helmet Cells Not Reportable 03/27/18 12:11 [place] Bodies Not Reportable 03/27/18 12:11 [place] Rings Not Reportable 03/27/18 12:11 Emigdio Cells Not Reportable 03/27/18 12:11 Bite Cells Not Reportable 03/27/18 12:11 Crenated Cell Not Reportable 03/27/18 12:11 Elliptocytes Not Reportable 03/27/18 12:11 Acanthocytes (Spur) Not Reportable 03/27/18 12:11 Rouleaux Not Reportable 03/27/18 12:11 Hemoglobin C Crystals Not Reportable 03/27/18 12:11 Schistocytes Not Reportable 03/27/18 12:11 Malaria parasites Not Reportable 03/27/18 12:11 Nico Bodies Not Reportable 03/27/18 12:11 Hem Pathologist Commnt No 03/27/18 12:11 Sodium 141 mmol/L (137-145) 03/29/18 04:59 Potassium 3.8 mmol/L (3.6-5.0) 03/29/18 04:59 Chloride 104.4 mmol/L (98-107) 03/29/18 04:59 Carbon Dioxide 25 mmol/L (22-30) 03/29/18 04:59 Anion Gap 15 mmol/L 03/29/18 04:59 BUN 15 mg/dL (9-20) 03/29/18 04:59 Creatinine 0.5 mg/dL (0.8-1.5) L 03/29/18 04:59 Estimated GFR > 60 ml/min 03/29/18 04:59 BUN/Creatinine Ratio 30 % 03/29/18 04:59 Glucose 93 mg/dL (75-100) 03/29/18 04:59 Lactic Acid 0.90 mmol/L (0.7-2.0) 03/27/18 19:55 Calcium 8.3 mg/dL (8.4-10.2) L 03/29/18 04:59 Total Creatine Kinase 471 units/L (55-170) H 03/30/18 15:04 Urine Color [place] (Yellow) 03/27/18 12:12 Urine Turbidity Slightly-cloudy (Clear) 03/27/18 12:12 Urine pH 5.0 (5.0-7.0) 03/27/18 12:12 Ur Specific [place] 1.027 (1.003-1.030) 03/27/18 12:12 Urine Protein 100 mg/dl mg/dL (Negative) 03/27/18 12:12 Urine Glucose (UA) Neg mg/dL (Negative) 03/27/18 12:12 Urine Ketones Tr mg/dL (Negative) 03/27/18 12:12 Urine Blood Neg (Negative) 03/27/18 12:12 Urine Nitrite Neg (Negative) 03/27/18 12:12 Urine Bilirubin Neg (Negative) 03/27/18 12:12 Urine Urobilinogen 4.0 mg/dL (<2.0) 03/27/18 12:12 Ur Leukocyte Esterase Neg (Negative) 03/27/18 12:12 Urine WBC (Auto) 16.0 /HPF (0.0-6.0) H 03/27/18 12:12 Urine RBC (Auto) 25.0 /HPF (0.0-6.0) 03/27/18 12:12 U Epithel Cells (Auto) 1.0 /HPF (0-13.0) 03/27/18 12:12 Urine Bacteria (Auto) 4+ /HPF (Negative) 03/27/18 12:12 Hyaline Casts 12 /LPF 03/27/18 12:12 Urine Mucus 3+ /HPF 03/27/18 12:12 Urine Yeast (Budding) 1+ /HPF 03/27/18 12:12 Urine Sperm 3+ /HPF (COMMUNITY DEVELOPMENT DIRECTOR) 03/27/18 12:12 Salicylates < 0.3 mg/dL (2.8-20.0) L 03/27/18 12:11 Urine Opiates Screen Presumptive negative 03/27/18 12:12 Urine Methadone Screen Presumptive negative 03/27/18 12:12 Acetaminophen < 5.0 ug/mL (10.0-30.0) L 03/27/18 12:11 Ur Barbiturates Screen Presumptive negative 03/27/18 12:12 Ur Phencyclidine Scrn Presumptive negative 03/27/18 12:12 Ur Amphetamines Screen Presumptive positive 03/27/18 12:12 U Benzodiazepines Scrn Presumptive negative 03/27/18 12:12 Urine Cocaine Screen Presumptive negative 03/27/18 12:12 U Marijuana (THC) Screen Presumptive negative 03/27/18 12:12 Drugs of Abuse Note Disclamer 03/27/18 12:12 Plasma/Serum Alcohol < 0.01 % (0-0.07) 03/27/18 12:11
[2018-03-30] MEDS: INVEGA PO SCH (23:02)
[2018-03-31] MEDS: HEPARIN SUB-Q SCH ×2 (10:46→22:50)
[2018-03-31] MEDS: VISTARIL PO SCH ×2 (10:46→22:50)
[2018-03-31] MEDS: SODIUM CHLORIDE FLUSH SYRINGE 10 ML IV SCH ×2 (10:47→23:04)
[2018-03-31] MEDS: INVEGA PO SCH (14:14)
--- NOTE | 2018-03-31 15:46 | Progress Note ---
Assessment and Plan Assessment and plan: 53 YO Male with Nicotine Dependence, Paranoid Schizophrenia, Methamphetamine Abuse presents to ED for evaluation. Pt is unable to provide history due to disorganized schizophrenia as well as confusion. Pt brought to ED by [facility] for medical clearance. As per patient, he reports that he was hanging out with friends and ingested "monkey paw". No further history available. Pt seen and evaluated in ED and found to have UTI, Sepsis, and Acute Renal Failure. Pt admitted to medical floor, and initiated on sepsis protocol. Sepsis secondary to Acute cystitis Acute cystitis Acute Kidney injury secondary to vasomotor nephropathy-rESOLVED Methampetamin abused Acute Psychosis Rhabdomyolysis Schizophrenia Recent Incarceration Plan * Supportive care * Follow cultures-NEGATIVE * Discontinue IV fluids * discussed with cardiology. * Continue 1013 pending psych eval * Patient clinically cleared for discharge.oNCE PSYCH EVAL COMPLETED * Plan discussed with patient in detail * DVT/GI prophy * Counselling against substance abuse. 15 MINS History Interval history: Patient seen and examined, Resting comfortably no chest pain, nausea, vomiting or diarrhea. Hospitalist Physical - Physical exam Narrative exam: VITAL SIGNS: Reviewed. GENERAL: The patient appeared well nourished and normally developed. Vital signs as documented. HEAD: No signs of head trauma. EYES: Pupils are equal. Extraocular motions intact. EARS: Hearing grossly intact. MOUTH: Oropharynx is normal. NECK: No adenopathy, no JVD. CHEST: Chest with clear breath sounds bilaterally. No wheezes, rales, or rhonchi. CARDIAC: Regular rate and rhythm. S1 and S2, without murmurs, gallops, or rubs. VASCULAR: No Edema. Peripheral pulses normal and equal in all extremities. ABDOMEN: Soft, without detectable tenderness. No sign of distention. No rebound or guarding, and no masses palpated. Bowel Sounds normal. MUSCULOSKELETAL: Good range of motion of all major joints. Extremities without clubbing, cyanosis or edema. NEUROLOGIC EXAM: Alert and oriented x 3. No focal sensory or strength deficits. Speech normal. Follows commands. PSYCHIATRIC: Mood normal.disorganized thought process SKIN: No rash or lesions. - Constitutional Vitals: Temp Pulse Resp BP Pulse Ox 98.0 F 65 18 104/68 93 03/31/18 12:03/31/18 12:03/31/18 12:06 03/31/18 12:03/31/18 12:06 General appearance: Present: no acute distress, well-nourished Results - Labs CBC & Chem 7: 03/29/18 04:59 03/29/18 04:59 Labs: Laboratory Last Values WBC 6.7 K/mm3 (4.5-11.0) 03/29/18 04:59 RBC 4.32 M/mm3 (3.65-5.03) 03/29/18 04:59 Hgb 14.2 gm/dl (11.8-15.2) 03/29/18 04:59 Hct 41.4 % (35.5-45.6) 03/29/18 04:59 MCV 96 fl (84-94) H 03/29/18 04:59 MCH 33 pg (28-32) H 03/29/18 04:59 MCHC 34 % (32-34) 03/29/18 04:59 RDW 13.6 % (13.2-15.2) 03/29/18 04:59 Plt Count 153 K/mm3 (140-440) 03/29/18 04:59 Lymph % (Auto) 27.5 % (13.4-35.0) 03/28/18 11:43 [place] % (Auto) 13.3 % (0.0-7.3) H 03/28/18 11:43 Eos % (Auto) 1.3 % (0.0-4.3) 03/28/18 11:43 Baso % (Auto) 0.2 % (0.0-1.8) 03/28/18 11:43 Lymph # 2.1 K/mm3 (1.2-5.4) 03/28/18 11:43 [place] # 1.0 K/mm3 (0.0-0.8) H 03/28/18 11:43 Eos # 0.1 K/mm3 (0.0-0.4) 03/28/18 11:43 Baso # 0.0 K/mm3 (0.0-0.1) 03/28/18 11:43 Add Manual Diff Complete 03/27/18 12:11 Total Counted 100 03/27/18 12:11 Seg Neutrophils % 57.7 % (40.0-70.0) 03/28/18 11:43 Seg Neuts % (Manual) 70.0 % (40.0-70.0) 03/27/18 12:11 Band Neutrophils % 4.0 % 03/27/18 12:11 Lymphocytes % (Manual) 9.0 % (13.4-35.0) L 03/27/18 12:11 Reactive Lymphs % (Man) 0 % 03/27/18 12:11 Monocytes % (Manual) 17.0 % (0.0-7.3) H 03/27/18 12:11 Eosinophils % (Manual) 0 % (0.0-4.3) 03/27/18 12:11 Basophils % (Manual) 0 % (0.0-1.8) 03/27/18 12:11 Metamyelocytes % 0 % 03/27/18 12:11 Myelocytes % 0 % 03/27/18 12:11 Promyelocytes % 0 % 03/27/18 12:11 Blast Cells % 0 % 03/27/18 12:11 Nucleated RBC % Not Reportable 03/27/18 12:11 Seg Neutrophils # 4.5 K/mm3 (1.8-7.7) 03/28/18 11:43 Seg Neutrophils # Man 12.7 K/mm3 (1.8-7.7) H 03/27/18 12:11 Band Neutrophils # 0.7 K/mm3 03/27/18 12:11 Lymphocytes # (Manual) 1.6 K/mm3 (1.2-5.4) 03/27/18 12:11 Abs React Lymphs (Man) 0.0 K/mm3 03/27/18 12:11 Monocytes # (Manual) 3.1 K/mm3 (0.0-0.8) H 03/27/18 12:11 Eosinophils # (Manual) 0.0 K/mm3 (0.0-0.4) 03/27/18 12:11 Basophils # (Manual) 0.0 K/mm3 (0.0-0.1) 03/27/18 12:11 Metamyelocytes # 0.0 K/mm3 03/27/18 12:11 Myelocytes # 0.0 K/mm3 03/27/18 12:11 Promyelocytes # 0.0 K/mm3 03/27/18 12:11 Blast Cells # 0.0 K/mm3 03/27/18 12:11 WBC Morphology Not Reportable 03/27/18 12:11 Hypersegmented Neuts Not Reportable 03/27/18 12:11 Hyposegmented Neuts Not Reportable 03/27/18 12:11 Hypogranular Neuts Not Reportable 03/27/18 12:11 Smudge Cells Not Reportable 03/27/18 12:11 Toxic Granulation Not Reportable 03/27/18 12:11 Toxic Vacuolation Not Reportable 03/27/18 12:11 Dohle Bodies Not Reportable 03/27/18 12:11 Pelger-Huet Anomaly Not Reportable 03/27/18 12:11 Rodrick Rods Not Reportable 03/27/18 12:11 Platelet Estimate Consistent w auto 03/27/18 12:11 Clumped Platelets Not Reportable 03/27/18 12:11 Plt Clumps, EDTA Not Reportable 03/27/18 12:11 Large Platelets Few 03/27/18 12:11 Giant Platelets Not Reportable 03/27/18 12:11 Platelet Satelliting Not Reportable 03/27/18 12:11 Plt Morphology Comment Not Reportable 03/27/18 12:11 RBC Morphology Normal 03/27/18 12:11 Dimorphic RBCs Not Reportable 03/27/18 12:11 Polychromasia Not Reportable 03/27/18 12:11 Hypochromasia Not Reportable 03/27/18 12:11 Poikilocytosis Not Reportable 03/27/18 12:11 Anisocytosis Not Reportable 03/27/18 12:11 Microcytosis Not Reportable 03/27/18 12:11 Macrocytosis Not Reportable 03/27/18 12:11 Spherocytes Not Reportable 03/27/18 12:11 Pappenheimer Bodies Not Reportable 03/27/18 12:11 Sickle Cells Not Reportable 03/27/18 12:11 Target Cells Not Reportable 03/27/18 12:11 Tear Drop Cells Not Reportable 03/27/18 12:11 Ovalocytes Not Reportable 03/27/18 12:11 Helmet Cells Not Reportable 03/27/18 12:11 [place] Bodies Not Reportable 03/27/18 12:11 [place] Rings Not Reportable 03/27/18 12:11 [place] Cells Not Reportable 03/27/18 12:11 Bite Cells Not Reportable 03/27/18 12:11 Crenated Cell Not Reportable 03/27/18 12:11 Elliptocytes Not Reportable 03/27/18 12:11 Acanthocytes (Spur) Not Reportable 03/27/18 12:11 Rouleaux Not Reportable 03/27/18 12:11 Hemoglobin C Crystals Not Reportable 03/27/18 12:11 Schistocytes Not Reportable 03/27/18 12:11 Malaria parasites Not Reportable 03/27/18 12:11 Nico Bodies Not Reportable 03/27/18 12:11 Hem Pathologist Commnt No 03/27/18 12:11 Sodium 141 mmol/L (137-145) 03/29/18 04:59 Potassium 3.8 mmol/L (3.6-5.0) 03/29/18 04:59 Chloride 104.4 mmol/L (98-107) 03/29/18 04:59 Carbon Dioxide 25 mmol/L (22-30) 03/29/18 04:59 Anion Gap 15 mmol/L 03/29/18 04:59 BUN 15 mg/dL (9-20) 03/29/18 04:59 Creatinine 0.5 mg/dL (0.8-1.5) L 03/29/18 04:59 Estimated GFR > 60 ml/min 03/29/18 04:59 BUN/Creatinine Ratio 30 % 03/29/18 04:59 Glucose 93 mg/dL (75-100) 03/29/18 04:59 Lactic Acid 0.90 mmol/L (0.7-2.0) 03/27/18 19:55 Calcium 8.3 mg/dL (8.4-10.2) L 03/29/18 04:59 Total Creatine Kinase 471 units/L (55-170) H 03/30/18 15:04 Urine Color [place] (Yellow) 03/27/18 12:12 Urine Turbidity Slightly-cloudy (Clear) 03/27/18 12:12 Urine pH 5.0 (5.0-7.0) 03/27/18 12:12 Ur Specific [place] 1.027 (1.003-1.030) 03/27/18 12:12 Urine Protein 100 mg/dl mg/dL (Negative) 03/27/18 12:12 Urine Glucose (UA) Neg mg/dL (Negative) 03/27/18 12:12 Urine Ketones Tr mg/dL (Negative) 03/27/18 12:12 Urine Blood Neg (Negative) 03/27/18 12:12 Urine Nitrite Neg (Negative) 03/27/18 12:12 Urine Bilirubin Neg (Negative) 03/27/18 12:12 Urine Urobilinogen 4.0 mg/dL (<2.0) 03/27/18 12:12 Ur Leukocyte Esterase Neg (Negative) 03/27/18 12:12 Urine WBC (Auto) 16.0 /HPF (0.0-6.0) H 03/27/18 12:12 Urine RBC (Auto) 25.0 /HPF (0.0-6.0) 03/27/18 12:12 U Epithel Cells (Auto) 1.0 /HPF (0-13.0) 03/27/18 12:12 Urine Bacteria (Auto) 4+ /HPF (Negative) 03/27/18 12:12 Hyaline Casts 12 /LPF 03/27/18 12:12 Urine Mucus 3+ /HPF 03/27/18 12:12 Urine Yeast (Budding) 1+ /HPF 03/27/18 12:12 Urine Sperm 3+ /HPF (SU[employer]ATE [employer]ING) 03/27/18 12:12 Salicylates < 0.3 mg/dL (2.8-20.0) L 03/27/18 12:11 Urine Opiates Screen Presumptive negative 03/27/18 12:12 Urine Methadone Screen Presumptive negative 03/27/18 12:12 Acetaminophen < 5.0 ug/mL (10.0-30.0) L 03/27/18 12:11 Ur Barbiturates Screen Presumptive negative 03/27/18 12:12 Ur Phencyclidine Scrn Presumptive negative 03/27/18 12:12 Ur Amphetamines Screen Presumptive positive 03/27/18 12:12 U Benzodiazepines Scrn Presumptive negative 03/27/18 12:12 Urine Cocaine Screen Presumptive negative 03/27/18 12:12 U Marijuana (THC) Screen Presumptive negative 03/27/18 12:12 Drugs of Abuse Note Disclamer 03/27/18 12:12 Plasma/Serum Alcohol < 0.01 % (0-0.07) 03/27/18 12:11
--- NOTE | 2018-03-31 18:40 | Progress Note ---
Subjective - Reason for Consult Consult date: 03/31/18 Reason for consult: Psychiatric Follow-up Evaluation - Chief Complaint Chief complaint: " I feel alright" Patient is a 53-year-old white male who presents to the ER for medical clearance. The patient has a history of methamphetamine abuse. Today the patient is calm, cooperative, and compliant. Presents less disorganized. He states " when I leave I'm going to my sister Leti's house. She is going to take me to rehab." He reports good sleep and appetite. He verbalizes that he has court on 04-05-2018 for family domestic violence. He denies SI/HI, A/VH, delusions, withdrawal symptoms, or cravings. Provider attempted to contact patient's sister Leti at 6:45 pm ( per patient's consent) but no answer. He reports medication compliance. No side effects noted/reported. Mental Status Exam - Vital signs Last Vital Signs Temp 98.4 F 03/31/18 16:31 Pulse 66 03/31/18 16:31 Resp 18 03/31/18 16:31 BP 109/73 03/31/18 16:31 Pulse Ox 97 03/31/18 16:31 - Exam Narrative exam: Mental Status Exam General Appearance: Causally Dressed-hospital gown Eye Contact: Intermittent Orientation: Alert and oriented x 4 ( person, place, time, and situation) Attitude/Behavior: Cooperative Sensorium: Clear Psychomotor & Musculoskeletal Activity: Laying in bed Mood: "Fairly decent" Affect: Constricted Speech/Language: Regular rate and tone Thought Processes: Circumstantial Thought Content: Reality oriented, logical. No delusions reported/noted. Perception: Patient denies A/V/T hallucinations. Concentration/Attention: Impaired Suicidal Ideations/Plan: Patient denies. Homicidal Ideations/Plan: Patient denies. Insight: Variable Judgment: Variable Assessment and Plan Impression: Unspecified Psychosis. Substance Use DO (amphetamines). Today the patient is cooperative and less disorganized during the assessment. He denies SI /HI, A/VH, and delusions. CK 471. DDx: Schizophrenia, R/O Bipolar DO with psychosis Recommendation/Plan: 1. The patient's 1013 was transferred to a 2013. Inpatient psy/rehab services is ongoing for this patient. 2. Continue Invega 3 mg PO daily for psychosis and Vistaril 25 mg PO BID for anxiety. Discussed possible metabolic side effects of Invega with patient. 3. Will continue to monitor psychosis, mood, sleep, appetite, compliance, and side effects.
[2018-04-01] MEDS: VISTARIL PO SCH (10:12)
[2018-04-01] MEDS: HEPARIN SUB-Q SCH (10:12)
[2018-04-01] MEDS: INVEGA PO SCH (10:12)
[2018-04-01] MEDS: SODIUM CHLORIDE FLUSH SYRINGE 10 ML IV SCH (10:13)
--- NOTE | 2018-04-01 10:17 | Progress Note ---
Assessment and Plan Assessment and plan: 53 YO Male with Nicotine Dependence, Paranoid Schizophrenia, Methamphetamine Abuse presents to ED for evaluation. Pt is unable to provide history due to disorganized schizophrenia as well as confusion. Pt brought to ED by [facility] for medical clearance. As per patient, he reports that he was hanging out with friends and ingested "monkey paw". No further history available. Pt seen and evaluated in ED and found to have UTI, Sepsis, and Acute Renal Failure. Pt admitted to medical floor, and initiated on sepsis protocol. Sepsis secondary to Acute cystitis Acute cystitis Acute Kidney injury secondary to vasomotor nephropathy-rESOLVED Methampetamin abuse Unspecified Psychosis. Substance Use DO (amphetamines). Acute Psychosis Rhabdomyolysis-RESOLVING Schizophrenia, R/O Bipolar DO with psychosis Recent Incarceration Plan * Supportive care * Follow cultures-NEGATIVE * Discontinue IV fluids * discussed with cardiology. * Continue 2012 pER psych eval * Continue Invega 3 mg PO daily for psychosis and Vistaril 25 mg PO BID for anxiety. Discussed possible metabolic side effects of Invega with patient. * Patient clinically cleared for discharge.oNCE PSYCH EVAL COMPLETED * Plan discussed with patient in detail * DVT/GI prophy * Counselling against substance abuse. 15 MINS Hospitalist Physical - Constitutional Vitals: Temp Pulse Resp BP Pulse Ox 97.9 F 58 L 20 113/73 95 04/01/18 06:33 04/01/18 06:33 04/01/18 06:33 04/01/18 06:33 04/01/18 06:33 General appearance: Present: no acute distress, well-nourished Results - Labs CBC & Chem 7: 03/29/18 04:59 03/29/18 04:59 Labs: Laboratory Last Values WBC 6.7 K/mm3 (4.5-11.0) 03/29/18 04:59 RBC 4.32 M/mm3 (3.65-5.03) 03/29/18 04:59 Hgb 14.2 gm/dl (11.8-15.2) 03/29/18 04:59 Hct 41.4 % (35.5-45.6) 03/29/18 04:59 MCV 96 fl (84-94) H 03/29/18 04:59 MCH 33 pg (28-32) H 03/29/18 04:59 MCHC 34 % (32-34) 03/29/18 04:59 RDW 13.6 % (13.2-15.2) 03/29/18 04:59 Plt Count 153 K/mm3 (140-440) 03/29/18 04:59 Lymph % (Auto) 27.5 % (13.4-35.0) 03/28/18 11:43 [place] % (Auto) 13.3 % (0.0-7.3) H 03/28/18 11:43 Eos % (Auto) 1.3 % (0.0-4.3) 03/28/18 11:43 Baso % (Auto) 0.2 % (0.0-1.8) 03/28/18 11:43 Lymph # 2.1 K/mm3 (1.2-5.4) 03/28/18 11:43 [place] # 1.0 K/mm3 (0.0-0.8) H 03/28/18 11:43 Eos # 0.1 K/mm3 (0.0-0.4) 03/28/18 11:43 Baso # 0.0 K/mm3 (0.0-0.1) 03/28/18 11:43 Add Manual Diff Complete 03/27/18 12:11 Total Counted 100 03/27/18 12:11 Seg Neutrophils % 57.7 % (40.0-70.0) 03/28/18 11:43 Seg Neuts % (Manual) 70.0 % (40.0-70.0) 03/27/18 12:11 Band Neutrophils % 4.0 % 03/27/18 12:11 Lymphocytes % (Manual) 9.0 % (13.4-35.0) L 03/27/18 12:11 Reactive Lymphs % (Man) 0 % 03/27/18 12:11 Monocytes % (Manual) 17.0 % (0.0-7.3) H 03/27/18 12:11 Eosinophils % (Manual) 0 % (0.0-4.3) 03/27/18 12:11 Basophils % (Manual) 0 % (0.0-1.8) 03/27/18 12:11 Metamyelocytes % 0 % 03/27/18 12:11 Myelocytes % 0 % 03/27/18 12:11 Promyelocytes % 0 % 03/27/18 12:11 Blast Cells % 0 % 03/27/18 12:11 Nucleated RBC % Not Reportable 03/27/18 12:11 Seg Neutrophils # 4.5 K/mm3 (1.8-7.7) 03/28/18 11:43 Seg Neutrophils # Man 12.7 K/mm3 (1.8-7.7) H 03/27/18 12:11 Band Neutrophils # 0.7 K/mm3 03/27/18 12:11 Lymphocytes # (Manual) 1.6 K/mm3 (1.2-5.4) 03/27/18 12:11 Abs React Lymphs (Man) 0.0 K/mm3 03/27/18 12:11 Monocytes # (Manual) 3.1 K/mm3 (0.0-0.8) H 03/27/18 12:11 Eosinophils # (Manual) 0.0 K/mm3 (0.0-0.4) 03/27/18 12:11 Basophils # (Manual) 0.0 K/mm3 (0.0-0.1) 03/27/18 12:11 Metamyelocytes # 0.0 K/mm3 03/27/18 12:11 Myelocytes # 0.0 K/mm3 03/27/18 12:11 Promyelocytes # 0.0 K/mm3 03/27/18 12:11 Blast Cells # 0.0 K/mm3 03/27/18 12:11 WBC Morphology Not Reportable 03/27/18 12:11 Hypersegmented Neuts Not Reportable 03/27/18 12:11 Hyposegmented Neuts Not Reportable 03/27/18 12:11 Hypogranular Neuts Not Reportable 03/27/18 12:11 Smudge Cells Not Reportable 03/27/18 12:11 Toxic Granulation Not Reportable 03/27/18 12:11 Toxic Vacuolation Not Reportable 03/27/18 12:11 Dohle Bodies Not Reportable 03/27/18 12:11 Pelger-Huet Anomaly Not Reportable 03/27/18 12:11 Rodrick Rods Not Reportable 03/27/18 12:11 Platelet Estimate Consistent w auto 03/27/18 12:11 Clumped Platelets Not Reportable 03/27/18 12:11 Plt Clumps, EDTA Not Reportable 03/27/18 12:11 Large Platelets Few 03/27/18 12:11 Giant Platelets Not Reportable 03/27/18 12:11 Platelet Satelliting Not Reportable 03/27/18 12:11 Plt Morphology Comment Not Reportable 03/27/18 12:11 RBC Morphology Normal 03/27/18 12:11 Dimorphic RBCs Not Reportable 03/27/18 12:11 Polychromasia Not Reportable 03/27/18 12:11 Hypochromasia Not Reportable 03/27/18 12:11 Poikilocytosis Not Reportable 03/27/18 12:11 Anisocytosis Not Reportable 03/27/18 12:11 Microcytosis Not Reportable 03/27/18 12:11 Macrocytosis Not Reportable 03/27/18 12:11 Spherocytes Not Reportable 03/27/18 12:11 Pappenheimer Bodies Not Reportable 03/27/18 12:11 Sickle Cells Not Reportable 03/27/18 12:11 Target Cells Not Reportable 03/27/18 12:11 Tear Drop Cells Not Reportable 03/27/18 12:11 Ovalocytes Not Reportable 03/27/18 12:11 Helmet Cells Not Reportable 03/27/18 12:11 [place] Bodies Not Reportable 03/27/18 12:11 [place] Rings Not Reportable 03/27/18 12:11 [place] Cells Not Reportable 03/27/18 12:11 Bite Cells Not Reportable 03/27/18 12:11 Crenated Cell Not Reportable 03/27/18 12:11 Elliptocytes Not Reportable 03/27/18 12:11 Acanthocytes (Spur) Not Reportable 03/27/18 12:11 Rouleaux Not Reportable 03/27/18 12:11 Hemoglobin C Crystals Not Reportable 03/27/18 12:11 Schistocytes Not Reportable 03/27/18 12:11 Malaria parasites Not Reportable 03/27/18 12:11 Nico Bodies Not Reportable 03/27/18 12:11 Hem Pathologist Commnt No 03/27/18 12:11 Sodium 141 mmol/L (137-145) 03/29/18 04:59 Potassium 3.8 mmol/L (3.6-5.0) 03/29/18 04:59 Chloride 104.4 mmol/L (98-107) 03/29/18 04:59 Carbon Dioxide 25 mmol/L (22-30) 03/29/18 04:59 Anion Gap 15 mmol/L 03/29/18 04:59 BUN 15 mg/dL (9-20) 03/29/18 04:59 Creatinine 0.5 mg/dL (0.8-1.5) L 03/29/18 04:59 Estimated GFR > 60 ml/min 03/29/18 04:59 BUN/Creatinine Ratio 30 % 03/29/18 04:59 Glucose 93 mg/dL (75-100) 03/29/18 04:59 Lactic Acid 0.90 mmol/L (0.7-2.0) 03/27/18 19:55 Calcium 8.3 mg/dL (8.4-10.2) L 03/29/18 04:59 Total Creatine Kinase 471 units/L (55-170) H 03/30/18 15:04 Urine Color [place] (Yellow) 03/27/18 12:12 Urine Turbidity Slightly-cloudy (Clear) 03/27/18 12:12 Urine pH 5.0 (5.0-7.0) 03/27/18 12:12 Ur Specific [place] 1.027 (1.003-1.030) 03/27/18 12:12 Urine Protein 100 mg/dl mg/dL (Negative) 03/27/18 12:12 Urine Glucose (UA) Neg mg/dL (Negative) 03/27/18 12:12 Urine Ketones Tr mg/dL (Negative) 03/27/18 12:12 Urine Blood Neg (Negative) 03/27/18 12:12 Urine Nitrite Neg (Negative) 03/27/18 12:12 Urine Bilirubin Neg (Negative) 03/27/18 12:12 Urine Urobilinogen 4.0 mg/dL (<2.0) 03/27/18 12:12 Ur Leukocyte Esterase Neg (Negative) 03/27/18 12:12 Urine WBC (Auto) 16.0 /HPF (0.0-6.0) H 03/27/18 12:12 Urine RBC (Auto) 25.0 /HPF (0.0-6.0) 03/27/18 12:12 U Epithel Cells (Auto) 1.0 /HPF (0-13.0) 03/27/18 12:12 Urine Bacteria (Auto) 4+ /HPF (Negative) 03/27/18 12:12 Hyaline Casts 12 /LPF 03/27/18 12:12 Urine Mucus 3+ /HPF 03/27/18 12:12 Urine Yeast (Budding) 1+ /HPF 03/27/18 12:12 Urine Sperm 3+ /HPF (MASTER [employer] TECHNICIAN) 03/27/18 12:12 Salicylates < 0.3 mg/dL (2.8-20.0) L 03/27/18 12:11 Urine Opiates Screen Presumptive negative 03/27/18 12:12 Urine Methadone Screen Presumptive negative 03/27/18 12:12 Acetaminophen < 5.0 ug/mL (10.0-30.0) L 03/27/18 12:11 Ur Barbiturates Screen Presumptive negative 03/27/18 12:12 Ur Phencyclidine Scrn Presumptive negative 03/27/18 12:12 Ur Amphetamines Screen Presumptive positive 03/27/18 12:12 U Benzodiazepines Scrn Presumptive negative 03/27/18 12:12 Urine Cocaine Screen Presumptive negative 03/27/18 12:12 U Marijuana (THC) Screen Presumptive negative 03/27/18 12:12 Drugs of Abuse Note Disclamer 03/27/18 12:12 Plasma/Serum Alcohol < 0.01 % (0-0.07) 03/27/18 12:11
[2018-04-01 11:58] VITALS: BP 100/65
--- NOTE | 2018-04-01 13:28 | Progress Note ---
Subjective - Reason for Consult Consult date: 04/01/18 Reason for consult: Psychiatry Follow-up - Chief Complaint Chief complaint: "I feel so much better" Patient is a 53-year-old white male who presents to the ER for medical clearance. The patient has a history of methamphetamine abuse. Today the patient is calm and cooperative during the assessment. The patient is more organized and lucid than previous assessments. He stated that he plan to attend rehab services once discharged. He denies SI/HI's and AVH's. He denies any side effects of his medications. He stated that he is homeless. Mental Status Exam - Vital signs Last Vital Signs Temp 98.3 F 04/01/18 11:50 Pulse 69 04/01/18 11:50 Resp 22 04/01/18 11:50 BP 100/65 04/01/18 11:50 Pulse Ox 95 04/01/18 11:50 - Exam Narrative exam: MSE: Appearance: calm, cooperative Behavior: regular eye contact Speech: regular rate and tone Mood: "okay" Affect: congruent to mood Thought Process: logical Thought Content: denies SI/HI's and AVH's Motor Activity: ambulatory Cognition: A/O x 3 Insight: appropriate Judgment: appropriate Assessment and Plan Impression: Unspecified Psychosis. Substance Use DO (amphetamines). Today the patient is calm and cooperative during the assessment. The psychosis has resolved. DDx: Schizophrenia, R/O Bipolar DO with psychosis Recommendation/Plan: Rescind 1013. Continue Invega 3 mg PO daily for psychosis. Discussed possible metabolic side effects of Invega with patient. The patient can follow up with [facility]. Discussed the importance to abstain from recreational drug use. Case Mgmt involvement, the patient is homeless.
== END 2018-04-01 16:30 | disposition home or self-care (01) | DRG 871 ==
LOC: ED 11:43 → 3A 13:22
PROVIDERS: ADMIT Internal Medicine; ATTEND Internal Medicine
DX: A41.9 Sepsis, unspecified organism (principal); N17.0 Acute kidney failure with tubular necrosis; M62.82 Rhabdomyolysis; F20.0 Paranoid schizophrenia; N30.00 Acute cystitis without hematuria; F15.10 Other stimulant abuse, uncomplicated; F29 Unspecified psychosis not due to a substance or known physiological condition; F17.200 Nicotine dependence, unspecified, uncomplicated; Z88.5 Allergy status to narcotic agent
CPT/HCPCS: 36415; 76770; 80048; 80307; 80320; 81001; 82140; 82550; 85007; 85025; 85027; 87040; 87086; 87116; 96360; 96372; G0480; J0696; J1630; J1644; J2060; J2405; J7030; Q0177

== ENCOUNTER 2018-04-06 08:16 | Emergency (ER) | payer SELFPAY | END 2018-04-06 08:17 | disposition left against medical advice (07) | LOC: ED 08:16 | DX: R33.9 Retention of urine, unspecified (principal); Z53.21 Procedure and treatment not carried out due to patient leaving prior to being seen by health care provider ==

== ENCOUNTER 2022-03-09 15:44 | Emergency (ER) | payer SELFPAY ==
[2022-03-09] MEDS ORDERED: HALOPERIDOL LACTATE 5 MG/1 ML INJ IM PRN (15:55)
[2022-03-09] MEDS ORDERED: LORazepam 2 MG/ML VIAL IM PRN (15:55)
--- NOTE | 2022-03-09 16:27 | Emergency Department Report ---
ED General Adult HPI - General Chief complaint: Psych Stated complaint: I am not right. Can I have something to drink. Time Seen by Provider: 03/09/22 15:55 Source: patient, EMS (Verbal report received from emergency medical services. EMS documentation not available at time of chart dictation ), RN notes reviewed, old records reviewed Mode of arrival: Ambulatory Limitations: Other (Patient is acutely psychotic) - History of Present Illness Initial comments: The patient was evaluated in the emergency department for symptoms described in the history of present illness. He/she was evaluated in the context of the global COVID-19 pandemic, which necessitated consideration that the patient might be at risk for infection with the virus that causes COVID-19. Institutional protocols and algorithms that pertain to the evaluation of patients at risk for COVID-19 are in a state of rapid change based on information released by regulatory bodies including the CDC and federal and state organizations. These policies and algorithms were followed during the patient's care in the emergency department. Please note that these policies, procedures and recommendations changed on a rapid basis. This is a 57-year-old gentleman who was brought to the hospital by emergency medical services with an EMS articulated complaint of psych. As per verbal report from EMS patient was found to be sitting down in a strangers yard, who called 911. The patient states that he is concerned that he killed family members. The patient denies physical pain. The patient denies cough and urinary symptoms. Police were contacted and verified that no family members were killed. The patient has a history of psychosis and methamphetamine abuse. The patient is asking for something to drink at this time. The patient is agitated but redirectable. EMS reports unremarkable vital signs in the field as well as unremarkable Accu- Chek. The patient is acutely psychotic, he does not describe exacerbating relieving factors, aswell is radiation. He reports there is no history of trauma. He denies physical pain. He does report that his homicidal thoughts are bothersome to him. - Related Data Home Medications Medication Instructions Recorded Confirmed Last Taken No Known Home Medications [No 03/27/18 03/27/18 Unknown Reported Home Medications] Allergies Allergy/AdvReac Type Severity Reaction Status Date / Time codeine Allergy Unknown Verified 03/09/22 15:59 ED Review of Systems ROS: Stated complaint: SUDICAL THOUGHTS Other details as noted in HPI Psychiatric: anxiety. denies: suicidal thoughts ED Past Medical Hx - Past Medical History Hx Psychiatric Treatment: Yes (paranoid schizophrenia) - Social History Smoking Status: Current Every Day Smoker - Medications Home Medications: Home Medications Medication Instructions Recorded Confirmed Last Taken Type No Known Home Medications [No 03/27/18 03/27/18 Unknown History Reported Home Medications] ED Physical Exam - General Limitations: Other (Agitation and psychosis) General appearance: alert, anxious - Head Head exam: Present: atraumatic, normocephalic - Eye Eye exam: Present: normal appearance, EOMI. Absent: nystagmus - ENT ENT exam: Present: normal exam, normal orophraynx, mucous membranes moist, normal external ear exam - Neck Neck exam: Present: normal inspection, full ROM. Absent: tenderness, meningismus - Respiratory Respiratory exam: Present: normal lung sounds bilaterally. Absent: respiratory distress, wheezes, rales, rhonchi, stridor, decreased breath sounds - Cardiovascular Cardiovascular Exam: Present: regular rate, normal rhythm, normal heart sounds. Absent: bradycardia, tachycardia, irregular rhythm, systolic murmur, diastolic murmur, rubs, gallop - GI/Abdominal GI/Abdominal exam: Present: soft, normal bowel sounds. Absent: tenderness, guarding, rebound, rigid, pulsatile mass - Rectal Rectal exam: Present: deferred - Extremities Exam Extremities exam: Present: normal inspection, full ROM, other (2+ pulses noted in the bilateral upper and lower extremities. There is no palpable cord. negative Homans sign. Muscular compartments are soft. The pelvis is stable.). Absent: pedal edema, calf tenderness - Back Exam Back exam: Present: normal inspection. Absent: tenderness, CVA tenderness (R), CVA tenderness (L), paraspinal tenderness, vertebral tenderness - Neurological Exam Neurological exam: Present: alert, normal gait, other (There is no facial droop. The tongue is midline. EOMI. 5 out of 5 strength in 4 extremities. Sensation is intact to light touch in 4 extremities). Absent: motor sensory deficit - Psychiatric Psychiatric exam: Present: agitated, anxious. Absent: suicidal ideation - Skin Skin exam: Present: warm, dry, intact, normal color. Absent: rash ED Course Vital Signs 03/09/22 03/09/22 17:15 17:56 Temperature 98.7 F Pulse Rate 77 Respiratory 18 Rate Blood Pressure 130/75 [Left] O2 Sat by Pulse 97 97 Oximetry - Reevaluation(s) Reevaluation #1: 03/09/22 16:26 Differential diagnosis, including but not limited to: Psychosis, medical clearance for psychiatric placement Assessment and plan: 57-year-old gentleman who presents with acute psychosis and concern that he has killed a family member. The patient lacks decision-making capacity, and he does not have the ability to care for himself independently. He presents in acute crisis. He is placed on a 1013. As needed medications ordered. Appropriate screening laboratory studies ordered. Mental health consultation is requested. Reassess after laboratory studies and vital signs have resulted. 03/09/22 18:25 Laboratory studies are essentially unremarkable. Transaminitis is chronic. CK reviewed and appreciated. Does not meet definition criteria for rhabdomyolysis. Renal function acceptable. Muscular compartments soft. Vital signs un remarkable. UA and COVID swab are pending at this time. The emergency room will follow along as the patient provides these. These tests are not required to exclude emergent medical conditions at this time. At this point in time, the patient does not appear to have an immediate medical contraindication to psychiatric admission, evaluation, consultation and placement. CK will decrease on its own with rest and oral hydration. Does not require IV fluids or recheck at this time ED Medical Decision Making - Lab Data Result diagrams: 03/09/22 16:18 03/09/22 16:18 Vital Signs 03/09/22 03/09/22 17:15 17:56 Temperature 98.7 F Pulse Rate 77 Respiratory 18 Rate Blood Pressure 130/75 [Left] O2 Sat by Pulse 97 97 Oximetry Lab Results 03/09/22 03/09/22 03/09/22 Range/Units 16:18 16:18 16:18 WBC 10.9 (4.5-11.0) K/mm3 RBC 4.54 (3.65-5.03) M/mm3 Hgb 15.1 (11.8-15.2) gm/dl Hct 43.7 (35.5-45.6) % MCV 96 H (84-94) fl MCH 33 H (28-32) pg MCHC 35 H (32-34) % RDW 13.8 (13.2-15.2) % Plt Count 216 (140-440) K/mm3 Sodium (137-145) mmol/L Potassium (3.6-5.0) mmol/L Chloride (98-107) mmol/L Carbon Dioxide (22-30) mmol/L Anion Gap mmol/L BUN (9-20) mg/dL Creatinine (0.8-1.3) mg/dL Estimated GFR ml/min BUN/Creatinine Ratio % Glucose (75-100) mg/dL Calcium (8.4-10.2) mg/dL Total Bilirubin (0.1-1.2) mg/dL AST (5-40) units/L ALT (7-56) units/L Alkaline Phosphatase (35-129) units/L Total Creatine Kinase (55-170) units/L Total Protein (6.3-8.2) g/dL Albumin (3.9-5) g/dL Albumin/Globulin Ratio % TSH (0.270-4.200) mlU/mL Salicylates < 0.3 L (2.8-20.0) mg/dL Acetaminophen 5.0 L (10.0-30.0) ug/mL Valproic Acid < 2.8 L (50-100) ug/mL Arrey 0.1 (0.0-1.2) mmol/L Plasma/Serum Alcohol (0-0.07) % 03/09/22 03/09/22 03/09/22 Range/Units 16:18 16:18 16:18 WBC (4.5-11.0) K/mm3 RBC (3.65-5.03) M/mm3 Hgb (11.8-15.2) gm/dl Hct (35.5-45.6) % MCV (84-94) fl MCH (28-32) pg MCHC (32-34) % RDW (13.2-15.2) % Plt Count (140-440) K/mm3 Sodium 141 (137-145) mmol/L Potassium 4.0 (3.6-5.0) mmol/L Chloride 103.4 (98-107) mmol/L Carbon Dioxide 25 (22-30) mmol/L Anion Gap 17 mmol/L BUN 14 (9-20) mg/dL Creatinine 0.8 (0.8-1.3) mg/dL Estimated GFR > 60 ml/min BUN/Creatinine Ratio 18 % Glucose 80 (75-100) mg/dL Calcium 9.8 (8.4-10.2) mg/dL Total Bilirubin 1.00 (0.1-1.2) mg/dL AST 60 H (5-40) units/L ALT 57 H (7-56) units/L Alkaline Phosphatase 88 (35-129) units/L Total Creatine Kinase 474 H (55-170) units/L Total Protein 7.7 (6.3-8.2) g/dL Albumin 3.9 (3.9-5) g/dL Albumin/Globulin Ratio 1.0 % TSH 0.564 (0.270-4.200) mlU/mL Salicylates (2.8-20.0) mg/dL Acetaminophen (10.0-30.0) ug/mL Valproic Acid (50-100) ug/mL Arrey (0.0-1.2) mmol/L Plasma/Serum Alcohol < 0.01 (0-0.07) % Critical care attestation.: If time is entered above; I have spent that time in minutes in the direct care of this critically ill patient, excluding procedure time. ED Disposition Clinical Impression: Schizophrenia, Acute psychosis Disposition: [address] [place] [address] Is pt being admited?: No Does the pt Need Aspirin: No Condition: Stable
[2022-03-09 16:44] LABS: Hematocrit 43.7 % (35.5-45.6); Hemoglobin 15.1 gm/dl (11.8-15.2); Mean Corpuscular HGB Conc 35 % (32-34); Mean Corpuscular Volume 96 fl (84-94); Platelet Count 216 K/mm3 (140-440); Red Blood Count 4.54 M/mm3 (3.65-5.03); Red Cell Distribution Width 13.8 % (13.2-15.2)
[2022-03-09 17:11] LABS: Alanine Aminotransferase 57 units/L (7-56); Albumin 3.9 g/dL (3.9-5); BUN/Creatinine Ratio 18; Blood Urea Nitrogen 14 mg/dL (9-20); Calcium 9.8 mg/dL (8.4-10.2); Hemolysis Index 7
[2022-03-09 20:04] LABS: Bilirubin,Urine NEG (Negative); Blood,Urine NEG (Negative); Color,Urine Amber (Yellow)
[2022-03-09 20:09] LABS: Bacteria,Urine 1+ /HPF (Negative); Calcium Oxalate Crystals,Urine 1+; Mucus,Urine 3+ /HPF
[2022-03-09 20:14] LABS: Amphetamine Screen,Urine PRESUMPTIVE POSITIVE; Benzodiazepines Screen,Urine PRESUMPTIVE NEGATIVE; Cannabinoid Screen,Urine PRESUMPTIVE NEGATIVE; Cocaine Screen,Urine PRESUMPTIVE NEGATIVE; Methadone Screen,Urine PRESUMPTIVE NEGATIVE; Opiate Screen,Urine PRESUMPTIVE NEGATIVE
--- NOTE | 2022-03-10 16:58 | Consultation ---
History of Present Illness - Reason for Consult Consult date: 03/09/22 Reason for consult: MHE - History of Present Psychiatric Illness Admission Note: 57 year old male was brought to the ER having been seen on neighbors front yard. Patient states that he was "having a mental break down". Patient states that he was having visions of "Killing my family".Patient has past medical hx of Meth use and psychosis. Patient states that his last meth use was yesterday 03/09/22. Patient observed scratching and twitching. Patient states that he is having SI/HI thoughts at this time. Patient would be admitted to inpatient for drug rehabilitation. HPI PAST PSYCHIATRIC HISTORY: Diagnoses: Psychosis, substance abuse Suicide attempts or Self-harm behavior: Yes Prior psychiatric hospitalizations: Yes Substance Abuse history:Yes Previous psychiatric medications tried: Yes Outpatient treatment: PAST MEDICAL HISTORY: Family Psychiatric History Sister and Brother SOCIAL HISTORY Marital Status: Single Living Arrangements: Employment Status: Unemployed Access to guns/weapons: Denies Education: History of Abuse: Legal History: Denies REVIEW OF SYSTEMS Constitutional: Negative for weight loss ENT: Negative for stridor Respiratory: Negative for cough or hemoptysis All other systems reviewed and are negative Diagnoses: Psychosis, Substance abuse Treatment Plan Patient will be admitted for inpatient psychiatric evaluation,and drug rehabilitation The patient's behavior, mood, sleep and appetite will be closely monitored. Patient will be enrolled in individual and group therapeutic sessions and encouraged to attend. Patient will be provided with a safe and structured environment. Patient's physical health needs will be addressed by the Hospitalist. Hospitalist Consulted Labs including CBC, CMP, Lipid profile and Hemoglobin A1C ordered Social Assessment will be completed and the Chemical Radiation Technician will work with patient and family to ensure a suitable and safe disposition Medication adjustment will be made as clinically indicated The patient agreed on the treatment plan, understood the risk, benefit, alternative treatment, potential consequence of no treatment, and gave informed consent. Medications and Allergies Allergies Allergy/AdvReac Type Severity Reaction Status Date / Time codeine Allergy Unknown Verified 03/09/22 15:59 Home Medications Medication Instructions Recorded Confirmed Last Taken Type No Known Home Medications [No 03/27/18 03/09/22 Unknown History Reported Home Medications] Active Meds: Active Medications Haloperidol Lactate (Haloperidol Lactate 5 Mg/1 Ml Inj) 5 mg IM Q6HR PRN PRN Reason: Agitation Lorazepam (Lorazepam 2 Mg/Ml Vial) 2 mg IM Q4HR PRN PRN Reason: Agitation Last Admin: 03/09/22 16:18 Dose: 2 mg Mental Status Exam - Vital signs Last Vital Signs Temp 97.4 F L 03/10/22 11:15 Pulse 83 03/10/22 11:15 Resp 18 03/10/22 11:15 BP 108/76 03/10/22 11:15 Pulse Ox 99 03/10/22 11:16 Results Result Diagrams: 03/09/22 16:18 03/09/22 16:18 Abnormal lab results 03/09/22 03/09/22 03/09/22 Range/Units 16:18 16:18 16:18 MCV 96 H (84-94) fl MCH 33 H (28-32) pg MCHC 35 H (32-34) % AST (5-40) units/L ALT (7-56) units/L Total Creatine Kinase (55-170) units/L Salicylates < 0.3 L (2.8-20.0) mg/dL Acetaminophen 5.0 L (10.0-30.0) ug/mL Valproic Acid < 2.8 L (50-100) ug/mL 03/09/22 Range/Units 16:18 MCV (84-94) fl MCH (28-32) pg MCHC (32-34) % AST 60 H (5-40) units/L ALT 57 H (7-56) units/L Total Creatine Kinase 474 H (55-170) units/L Salicylates (2.8-20.0) mg/dL Acetaminophen (10.0-30.0) ug/mL Valproic Acid (50-100) ug/mL All other labs normal.
[2022-03-11 08:29] VITALS: BP 112/84
== END 2022-03-11 08:29 ==
LOC: ED 15:44 → EEVIPCON 15:44 → ED 03-11 08:29
DX: F20.0 Paranoid schizophrenia (principal); Z20.822 Contact with and (suspected) exposure to COVID-19; F17.200 Nicotine dependence, unspecified, uncomplicated
CPT/HCPCS: 36415; 80053; 80164; 80178; 80307; 81001; 82550; 84443; 85027; 96372; 99285; J2060; U0003; 80320; 99284; G0480